=== PATIENT | male | born 1960 | race Caucasian/White ===

== ENCOUNTER → 2021-03-15 09:18 | Outpatient (CLI) | payer OTHER, SELFPAY ==
[2021-03-15 12:17] LABS: COVID19 -Nasal RAPID Negative (Negative)
== END ==
PROVIDERS: Visit Provider Physician Assistant
DX: Z01.812 Encounter for preprocedural laboratory examination (principal); Z20.822 Contact with and (suspected) exposure to COVID-19
CPT/HCPCS: 87635

== ENCOUNTER 2021-03-17 08:02 | Day surgery (SDC) | payer OTHER, SELFPAY ==
[2021-03-10 12:51] VITALS: BMI 41.4
[2021-03-17] VITALS (11 sets, daily range): BP systolic 139–174; BP diastolic 74–97; PULSE 59–70; RESP 12–22; TEMP 35.6–37.1; O2SAT 92–99; BMI 41.4
--- NOTE | 2021-03-17 06:30 | DI.RAD.S_ITS ---
PROCEDURE: XR KNEE RT 1TO2V INDICATIONS: post op total knee TECHNIQUE: 2 view(s) of the knee acquired. [facility] [place] 4+ VIEWS RIGHT, 01/15/2021, 10:26. FINDINGS: Bones: Patient is status post knee joint arthroplasty. Hardware components are in expected positions. Visualized bony structures are intact. Soft tissues: Overlying postoperative changes are noted. IMPRESSION: Expected immediate postoperative appearance of right TKA. Dictated by: Man Melendrez [facility] Interpreted: Farooq Newman MD on 03/17/2021 at 12:45 Transcribed by: CAROLYN on 03/17/2021 at 12:46 Approved by: Farooq Newman M.D. on 03/17/2021 at 16:55
[2021-03-17] MEDS: ACETAMINOPHEN 325 MG TABLET 975 MG PO (08:33)
[2021-03-17] MEDS: PREGABALIN 75 MG CAPSULE PO (08:35)
[2021-03-17] MEDS: CELECOXIB 200 MG CAPSULE PO (08:35)
[2021-03-17] MEDS: LACTATED RINGERS 1,000 ML 42 ML IV ×2 (08:37→11:54)
--- NOTE | 2021-03-17 09:47 | PM.PREOP ---
Pre-operative Note COVID-19 COVID-19 status: Negative Result date/Date tested (Pos, Neg/Pending): 03/15/21 Interval Note History & Physical reviewed/Exam performed by Physician: Yes Changes to H&P: No
--- NOTE | 2021-03-17 10:11 | PM.OP.1 ---
Operative Date/Time/Diagnoses Date of procedure: 03/17/21 Time of procedure: 12:15 Pre-op diagnosis: Right knee osteoarthritis Post-op diagnosis: same Procedure & Clinicians Procedure: Right total knee replacement Same procedure as scheduled: Yes Indications: The patient has had progressively worsening right knee pain with radiographic changes consistent with arthritis. Non-operative management has failed and the patient has requested total knee replacement. The risks, benefits and alternatives to surgery were discussed with the patient prior to proceeding. Risks discussed included, but were not limited to, failure to relieve pain, stiffness, infection, nerve damage, deep venous thrombosis, pulmonary embolism, stroke, coma, heart attack, permanent paralysis and , as well as the potential need for eventual revision of the prosthetic. Surgeon: Rock Carrasco Afternoon Nanny: Rony Lomas Anesthesia Type: Local Operative Notes Findings: Severe osteoarthritis of the right knee, worst in the lateral compartment. Closure Type: primary Specimen(s): none sent Prosthetic devices, grafts, tissues, transplants, or devices: Implants used in this procedure were manufactured by the [employer] and included the BCS II Journey total knee replacement with a size 6 Oxinium femoral component, a size 6 right non porous tibial base plate, a 9 mm cross-linked polyethylene insert, and a 38 mm oval Roya II patella. Applied: implant(s) Estimated Blood Loss (mL): 25 Blood products transfused: none Tourniquet time (min): 53 Procedure in detail: The patient was seen in the pre-operative area, where the patient identified the right knee as the operative site and this was marked with my initials. The patient received pre-operative antibiotics, and was taken to the operating room and placed on the operative table in the supine position. After satisfactory anesthesia, a corporate legal secretary out was performed. The right leg was encircled with a tourniquet about the proximal thigh, and the leg was prepared from the toes to the tourniquet with ChloroPrep in the usual fashion and draped through sterile drapes. The leg was elevated and exsanguinated with Eschmark bandage and the tourniquet inflated to 250 mmHg pressure. The knee was approached through an approximately 18 cm incision centered over the patella and carried into the knee through a medial parapatellar arthrotomy. The anterior osteophytes and soft tissues were removed. The rotational landmarks of Nottingham's line and the transepicondylar axis were marked on the femur with electrocautery, and intramedullary guide holes for the femur and tibia were created. The distal femoral cut was made in 6 degrees of valgus using the intramedullary guide at the primary cut setting. The proximal tibial cut was then made using the intramedullary guide, taking 7 mm of bone off the less involved medial side. The extension gap was checked and the rotation of the femoral component confirmed with the gap balancing system. The anterior, posterior and chamfer cuts were then made. The posterior osteophytes and soft tissues were then removed. The posterior capsule was injected with part of a mixture of 60 ml 0.25% Marcaine mixed with 20 ml Exparel and 4 mg of morphine for post-operative pain control. The remainder of this mixture was injected into the capsule and subcutaneous tissues during cement curing. The tibia was prepared with the rotation set by an extra medullary guide. Trial tibial and femoral components were then placed and the intercondylar notch cut through the femoral trial. Range of motion was 0-140 degrees, with good stability throughout the range. The patella was then cut to accommodate the patellar prosthetic. There was no need for a lateral release. The trials were then removed, and the femoral hole plugged with a bone plug. The bone was prepared with pulsatile lavage, and dried with a sponge. Cement was applied and the final prosthetics placed. Excess cement was removed during and after cement curing. After confirming there was no extruded cement posteriorly, the final tibial insert was placed. The knee was copiously irrigated and the tourniquet deflated. Hemostasis was obtained. The capsule was closed with interrupted # 2 polyester suture. The subcutaneous layer was closed with 3-0 Vicryl, and the skin with a running 3-0 V-Lock suture and Dermabond. An Aquacel Ag dressing was applied and the patient was taken to recovery having tolerated the procedure well. Post-operative Condition: stable Disposition: PACU Plan for aftercare: The patient will be maintained on a standard total knee replacement protocol with weight bearing as tolerated. The patient will receive aspirin and sequential compression devices for DVT prophylaxis. The patient will be discharged home when safe for the home environment.
[2021-03-17] MEDS: CEFAZOLIN 1 GM VIAL 2 GM IV (10:40)
[2021-03-17] MEDS: TRANEXAMIC ACID 1,000 MG VIAL 1000 MG INJ ×2 (10:42→11:46)
--- NOTE | 2021-03-17 10:57 | SUR.OPER ---
Supine on padded OR bed. Pillow under head, arms secured on padded armboards <90 degree abduction. Safety belt across torso. Non-operative leg secured with tape over blanket over lower leg. Operative leg secured in DeMayo/Tesfaye/Nathe positioner. Foam padded brace at thigh of operative leg.
[2021-03-17] MEDS: BUPIVACAINE 0.25% W/ EPI 30 ML VIAL 60 ML INJ (11:05)
[2021-03-17] MEDS: MORPHINE 4 MG/ML INJ INJ (11:06)
[2021-03-17] MEDS: BUPIVACAINE LIPOSOME 266 MG/20 ML VIAL INJ (11:06)
[2021-03-17] MEDS: ONDANSETRON 4 MG/2 ML INJ IV (13:04)
[2021-03-17] MEDS: LACTATED RINGERS 1,000 ML 100 ML IV (13:28)
--- NOTE | 2021-03-17 13:40 | SUR.PHASEI ---
just after report to Jessica Esquivel and prior to transporting to room 216, pt reported not feeling well. Emesis of 100cc clear fluid was recorded. Gave 4mg of zofran and held for additional 15 minutes. Update given at bedside to RN.
--- NOTE | 2021-03-17 14:13 | PC.NURSE ---
Addendum entered by Jessica Esquivel R.N. 03/17/21 14:36: Patient feeling nauseated, requested some saltines. No emesis. Original Note: Patient to room at 1330 alert, oriented denies pain, reports just some heaviness to right knee. Patient able to wiggle toes, unable to left leg at this time. PPP, cap refill<2 sec. Patient had 100cc emesis in PACU right before transferring upstairs. Patient reports last void was at 0800 this am. Patient oriented to room and call light.
[2021-03-17] MEDS: OXYCODONE IR 10 MG TABLET PO (15:31)
[2021-03-17] MEDS: IBUPROFEN 400 MG TABLET PO (16:15)
[2021-03-17] MEDS: AMLODIPINE 5 MG TABLET PO (16:15)
--- NOTE | 2021-03-17 16:15 | PT.IIE ---
Current Diagnoses Unilateral primary osteoarthritis, right knee (03/17/21) Surgery Performed Operation Date: 03/17/21 10:30 Actual Procedures p Total Knee Arthroplasty(Right) - Rock Carrasco MD Medical History (Last Updated 03/10/21 @ 13:08 by Adelaide Jay RN) HLD (hyperlipidemia) HTN (hypertension) KD on CPAP Osteoarthritis Umbilical hernia Physical Therapy Inpatient Evaluation/Re-Eval M1 PT/OT-IP Prior Functional Status Start: 03/17/21 15:34 Freq: NEEDED Status: Active Protocol: Document 03/17/21 16:15 AW (Rec: 03/17/21 16:49 AW [id number]) Medical Review Prior Functional Status Medical History Reviewed Yes Communication WNL. Pt is an effective verbal communicator. Mobility and Gait Independent without assistive device. Pt states his knee hurts after a long walk but he is able to walk as much as he wants. Activities of Daily Living and IADL's Independent. 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 Social History Household Members spouse Living Arrangements House Number of Floors (Floors) Two Floors Number of Stairs To Enter/Railing? Level entrance. Pt stays on the supply coordinator. 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 He lives with his who will be available and able to assist at discharge. M2 PT-IP Current Condition Start: 03/17/21 15:34 Freq: NEEDED Status: Active Protocol: Document 03/17/21 16:15 AW (Rec: 03/17/21 16:49 AW [id number]) Physical Therapy Current Condition Current Condition Evaluation Date 03/17/21 Treatment Diagnosis R TKA; difficulty in walking Onset Date 03/17/21 Weight Bearing Status Weight Bearing Status Weight Bear as Tolerated M3 PT-IP Subjective Start: 03/17/21 15:34 Freq: NEEDED Status: Active Protocol: Document 03/17/21 16:15 AW (Rec: 03/17/21 16:49 AW [id number]) Subjective Physical Therapy Visit Type Type Initial Evaluation Visit Start Time 15:48 Visit Stop Time 16:15 Total Visit Minutes 27 Notes Pt's was present throughout. Ortho MD interrupted briefly to discuss potential discharge. Number of CERAMIC WORKER Visits 0 Physical Therapy Visit Comments Patient Comments Pt is willing to participate with PT Patient Goals Return home with spouse support. Return to work. Therapy Pain Assessment Pain When Pain Assessed During Mobility Pain Present Pain Present Pain Reported Location right thigh Intensity 6 Scale Used Numeric (0 - 10) Description Sharp Pain Behaviors Wincing Pain Management Techniques Distraction,Timing of Activity with Medications M4 PT-IP Mobility and Gait Start: 03/17/21 15:34 Freq: NEEDED Status: Active Protocol: Document 03/17/21 16:15 AW (Rec: 03/17/21 16:49 AW [id number]) PT-Bed Mobility Assessment Supine to Sit Supine to Sit Standby Assistance Scooting Scooting to Edge of Bed Standby Assistance PT-Transfer Assessment Sit to and From Stand Sit to and from Stand Standby Assistance,Use of Upper Extremities Equipment Transfer Assistive Device Gait Belt,Front Wheeled Walker Orthotic/Prosthetic Devices or Brace: No Transfers Transfer Destination Chair Transfer Technique ambulated with FWW Transfer Ability Level of Assist Standby Assistance Comments Mobility Comments Pt was lying in bed as PT arrived. BP was 173/89 HR 67 SpO2 98% RA. I haven't had my BP meds today. He sat up on EOB from flat bed SBA. Sitting BP was 167/82 HR 75. Pt stood from the bed with FWW SBA. He ambulated to the toilet, pushing the walker over the toilet and standing with good balance to void. He turned and ambulated to the chair with FWW SBA. He stood from the chair SBA and ambulated around the room a total of 40 feet with FWW SBA before returning to the chair. Pt was left with call sykes and tray table in reach. Gait Assessment Gait Gait Assistance Required: Standby Assistance Distance (Feet) 40 Able to Maintain Weight Bearing Status Yes During Gait Assistive Devices Assistive Device Gait Belt,Front Wheeled Walker Orthotic/Prosthetic Devices or Brace: Yes Gait Deviations General Gait Pattern Antalgic,Decreased Stride Length,Decreased Feet Clearance,Step-to Gait Factors Limiting Gait Function Factors Limiting Gait Function Decreased Strength,Limited Range of Motion,Pain,Poor Balance Comments Gait Comments Pt ambulated safely with FWW. No LOB. Stair Climbing Assessment Comments Stair Climbing Comments No stairs at home. PT-Balance Assessment Sitting Balance and Reactions Static Sitting Balance Ability Normal Dynamic Sitting Balance Ability Normal Standing Balance and Reactions Static Standing Balance Ability Good Dynamic Standing Balance Ability Good Device Used FWW M5 PT-IP Objective Assessments Start: 03/17/21 15:34 Freq: NEEDED Status: Active Protocol: Document 03/17/21 16:15 AW (Rec: 03/17/21 16:49 AW [id number]) Orientation Orientation/Cognition Level of Alertness Alert Orientation Name,Day of Week,Place, Situation Language Function Ability No Deficits Noted Safety Awareness Understands Safety Issues Memory Description No Deficits Noted Gross Range of Motion Lower Extremity ROM Assessment Right Impaired Strength Lower Extremity Strength Assessment Right Impaired Hip 3+/5 Knee 3-/5 Ankle 4/5 Comments Strength Comments LLE grossly 4+/5 Sensation Assessment Sensation Gross Sensation WNL M6 PT-IP Treatment Start: 03/17/21 15:34 Freq: NEEDED Status: Active Protocol: Document 03/17/21 16:15 AW (Rec: 03/17/21 16:49 AW [id number]) Physical Therapy Treatment Exercises Exercises Ankle Pumps,Quad Sets,Heel Slides,Passive Knee Extension Hang Education Education Provided Precautions,Weight Bearing Status,Post-Op Packet,Safety Other Treatments Other Treatment Performed Educated pt on PT plan of care , weightbearing status, and safe use of FWW. M7 PT-IP Assessment and Plan Start: 03/17/21 15:34 Freq: NEEDED Status: Active Protocol: Document 03/17/21 16:15 AW (Rec: 03/17/21 16:49 AW [id number]) PT Summary Assessment and Plan Potential Rehabilitation Potential Good Status of Condition at Evaluation Evolving Summary Impairments Pain,ROM,Strength,Balance,Bed Mobility,Transfers,Gait Assessment Summary Royce is a 60 yo man seen for PT evaluation on POD0 following R TKA. He is an independent community ambulator at baseline and is otherwise fully independent. On assessment, pt required no more than SBA with all mobilities using FWW. He has no stairs at home and will have his to provide assist. Pt may go home when medically stable. Outpatient PT is already scheduled. Goals Bed Mobility Goal Independent Transfer Goal Independent,Front Wheeled Walker Gait Goal Independent,Front Wheel Walker Gait Distance 200 Days to Meet Goals 2 Frequency of Treatment Frequency Of Treatment Twice a Day Treatment Plan Physical Therapy Treatment Plan Bed Mobility Training,Transfer Training,Gait Training, Therapeutic Exercise,Balance Retraining,Post Op Education, Discharge Planning,Hot or Cold Pack Precautions Other Precautions WBAT RLE Recommendations To Nursing Amount of Assist Needed Standby Assistance,1 Person Assist Discharge Recommendations PT Discharge Recommendations Home with Assistance, Outpatient PT Transportation Needs at Discharge Private Vehicle
--- NOTE | 2021-03-17 16:59 | PC.NURSE ---
patient with discharge orders, education and instructions gone over with patient and spouse. Patient taken down to transportation via wheelchair.
== END 2021-03-17 16:45 | disposition home or self-care (01) ==
LOC: OR 12:19 → AC 12:20
PROVIDERS: Referring Provider Orthopaedic Surgery; Visit Provider Orthopaedic Surgery
PROC: 0SRC0JZ Replacement of Right Knee Joint with Synthetic Substitute, Open Approach (ICD-10-PCS; CPT 27447; principal; 2021-03-17 10:30)
DX: M17.11 Unilateral primary osteoarthritis, right knee (principal); I10 Essential (primary) hypertension; E78.00 Pure hypercholesterolemia, unspecified; G47.33 Obstructive sleep apnea (adult) (pediatric)
CPT/HCPCS: 27447; 73560; 97161; 97535; C1776; C9290; J0690; J2250; J2270; J2405; J2704; J3010

== ENCOUNTER 2022-05-01 08:53 | Inpatient (IN) | payer OTHER, SELFPAY ==
[2021-03-17 13:30] VITALS: BMI 41.4
[2022-05-01] VITALS (12 sets, daily range): BP systolic 114–156; BP diastolic 65–96; PULSE 80–99; RESP 14–28; TEMP 36.8–37.9; O2SAT 93–98; BMI 40.7; BMI 41.3
--- NOTE | 2022-05-01 09:07 | DI.RAD.S_ITS ---
PROCEDURE: XR KNEE RT 3V INDICATIONS: swelling and pain TECHNIQUE: 3 views of the knee were acquired. COMPARISON: [facility], , XR KNEE RT 1TO2V, 03/17/2021, 12:30. FINDINGS: Bones: Stable postsurgical changes of prior right total knee arthroplasty without evidence for hardware complication. Postsurgical alignment is stable. No acute fracture seen. Soft tissues: Large joint effusion. No suspicious soft tissue calcifications. IMPRESSION: Right knee without acute fracture or dislocation. Stable postsurgical changes of right total knee arthroplasty. Large joint effusion. Dictated by: Farooq Newman M.D. on 05/01/2022 at 9:32 Approved by: Farooq Newman M.D. on 05/01/2022 at 9:33
[2022-05-01 09:31] LABS: Add Manual Diff / Slide Review NO; Basophils Absolute Auto 0 /uL (0-100); Basophils Percent Auto 0.2 % (0-2); Eosinophils Absolute Auto 0 /uL (0-450); Hematocrit 45.4 % (41-53); Hemoglobin 15.1 g/dL (13.5-17.5); Lymphocytes Absolute Auto 700 /uL (1100-4500); Lymphocytes Percent Auto 3.4 % (25-40); Mean Corpuscular HGB Conc 33.3 % (30-36); Mean Corpuscular Hemoglobin 29.9 PG (26-34); Mean Corpuscular Volume 89.6 fL (80-100); Monocytes Absolute Auto 2000 /uL (0-900); Neutrophils Absolute Auto 17400 /uL (1500-7000); Neutrophils Percent Auto 86.4 % (50-75); Platelet Count 189 X10^3/uL (150-400); Red Blood Cell Count 5.06 X10^6/uL (4.5-5.9); Red Cell Distribution Width 14.2 % (11.6-14.8); White Blood Cell Count 20.2 X10^3/uL (4.5-11.0)
[2022-05-01 09:40] LABS: Alanine Aminotransferase 30 IU/L (<50); Albumin 4.1 g/dL (3.5-5.0); Albumin Globulin Ratio 1.1 (1.0-2.8); Alkaline Phosphatase 77 U/L (38-126); Aspartate Aminotransferase 40 IU/L (17-59); BUN Creatinine Ratio 10.7 (6-22); Bilirubin Total 1.3 mg/dL (0.2-1.3); Blood Urea Nitrogen 16 mg/dL (9-20); Calcium 8.5 mg/dL (8.4-10.2); Carbon Dioxide 23 mmol/L (22-32); Chloride 96 mmol/L (98-107); Estimated Glomerular Filt Rate 54 mL/min (>60); Globulin 3.8 g/dL (1.7-4.1); Glucose 144 mg/dL (70-100); HEMOLYSIS < 15 (0-50); Potassium 3.4 mmol/L (3.4-5.1); Sodium 132 mmol/L (137-145); Total Protein 7.9 g/dL (6.3-8.2)
[2022-05-01 09:59] LABS: Lactate (Lactic Acid) 3.5 mmol/L (0.7-2.1)
--- NOTE | 2022-05-01 09:59 | ED.EXTPRO ---
HPI - Extremity Problem General Chief complaint: Extremity Problem,Nontraumatic Stated complaint: fever, unable to put weight on rt knee Time Seen by Provider: 05/01/22 09:41 Source: patient Mode of arrival: Wheelchair History of Present Illness HPI Narrative: Patient here with family. Complains of right knee pain and swelling. Unable to bear weight. Patient started with a fever 2 days ago. This morning temperature 100.0?. No fever here. Patient had total right knee replacement by Orthopedic Dr. Carrasco last year. Has been doing well until this week. No known injury. No sick contacts. No skin injury. No repetitive stress on his knee. Related Data Home Medications Medication Instructions Recorded Confirmed amlodipine 5 mg tablet 5 mg PO QPM 03/10/21 05/01/22 atorvastatin 40 mg tablet 40 mg PO DAILY 03/10/21 05/01/22 losartan 100 mg tablet 100 mg PO DAILY 03/10/21 05/01/22 Previous Rx's Medication Instructions Recorded hydroxyzine pamoate 25 mg capsule 25 mg PO Q6HR PRN Nausea #30 caps 03/17/21 Allergies Allergy/AdvReac Type Severity Reaction Status Date / Time ampicillin Allergy Severe Rash, Verified 05/01/22 17:27 diarrhea Review of Systems Review of Systems Narrative: GENERAL: Denies chills, fatigue, malaise, positive for fever, sweats. HEENT: Denies sinus pain, ear pain, sore throat RESPIRATORY: Denies dyspnea, cough CARDIOVASCULAR: Denies chest pain, palpitations GASTROINTESTINAL: Denies nausea, vomiting, abdominal pain : Denies dysuria, frequency, hematuria MUSCULOSKELETAL: Positive for muscle or bony pain SKIN: Denies rash, skin lesions NEUROLOGIC: Denies weakness, numbness ROS Unobtainable: All systems reviewed & are unremarkable except as noted in HPI and below Patient History Medical History HLD (hyperlipidemia) HTN (hypertension) KD on CPAP Osteoarthritis PONV (postoperative nausea and vomiting) Umbilical hernia Surgical History Hx of arthroscopy of right knee (~2001) Hx of knee surgery Hx of tonsillectomy [place] teeth removed Social History household members: spouse Smoking Status: Former smoker alcohol intake: current Smoking Status: Former smoker alcohol intake frequency: a few times a month Substance Use Type: does not use Exam Narrative Exam Narrative: GENERAL: in no distress, not toxic not dyspneic HEAD: Normocephalic. EYES: Pupils equal round No scleral icterus. ENT: Mucous membranes moist. NECK: Trachea midline. CARDIOVASCULAR: Regular rate and rhythm without murmurs RESPIRATORY: Clear to auscultation. Breath sounds equal bilaterally. No wheezes, rales, or rhonchi. EXTREMITIES: Patient in shorts. Shoes and socks off. Nontender hip and ankle and foot. Strong pedal pulse foot warm soft and pink. There is large edema effusion to the anterior knee. No overlying induration erythema. Very limited flexion to the knee due to pain. Able to keep fully extended. NEURO: AOx4. SKIN: Warm and dry PSYCH: Not anxious, is cooperative Initial Vital Signs Initial Vital Signs: Vital Signs Temperature 98.2 F 05/01/22 09:03 Pulse Rate 84 05/01/22 09:03 Respiratory Rate 16 05/01/22 09:03 Blood Pressure 139/77 05/01/22 09:03 Pulse Oximetry 97 05/01/22 09:03 Oxygen Delivery Method 05/01/22 09:03 Course Course Course Narrative: I did try aspirating the right knee. Use local infiltration of 1% lidocaine with epinephrine laterally and medially. No success with 18 gauge needle to aspirate synovial fluid. Decision to Admit Date: 05/01/22 Decision to Admit time: 10:34 Orders Ordered: ED Orders 05/01/22 11:37 Cell Count w Diff Body Fluid Stat 05/01/22 11:39 Body Fluid Culture Stat Gram Stain Stat Hydromorphone HCl (Hydromorphone 1 Mg Inj) 1 mg IV Q1H PRN PRN Reason: Pain, Moderate (4-6) Last Admin: 05/01/22 13:36 Dose: 1 mg Documented By: NAYE Hydromorphone HCl (Hydromorphone 2 Mg Inj) 0 mg IV Q5M PRN PRN Reason: Pain, Severe (7-10) Hydromorphone HCl (Hydromorphone 2 Mg Inj) 0 mg IV Q5M PRN PRN Reason: Pain, Moderate (4-6) Lactated Ringer's (Lactated Ringers) 1,000 mls @ 125 mls/hr IV CONT WIL Last Admin: 05/01/22 19:22 Dose: 125 mls/hr Documented By: Infusion: 05/01/22 19:22 Dose: 125 mls/hr Documented By: Admin: 05/01/22 13:36 Dose: 125 mls/hr Documented By: NAYE Metoclopramide HCl (Metoclopramide 10 Mg/2 Ml Inj) 10 mg IV NOW PRN PRN Reason: Nausea And Vomiting Ondansetron HCl (Ondansetron 4 Mg/2 Ml Inj) 4 mg IV NOW PRN PRN Reason: Nausea And Vomiting Oxycodone HCl (Oxycodone Ir 5 Mg Tablet) 5 mg PO PACUNOW PRN PRN Reason: Mild or moderate pain Discontinued Medications Acetaminophen (Acetaminophen 325 Mg Tablet) 975 mg PO PACUNOW ONE Stop: 05/01/22 19:13 Hydromorphone HCl (Hydromorphone 1 Mg Inj) 1 mg IV NOW ONE Stop: 05/01/22 11:18 Last Admin: 05/01/22 11:24 Dose: 1 mg Documented By: OTTO Sodium Chloride (Normal Saline 0.9%) 1,000 mls @ 1,000 mls/hr IV BOLUS ONE Stop: 05/01/22 11:10 Last Infusion: 05/01/22 11:39 Dose: 0 mls/hr Documented By: Admin: 05/01/22 10:29 Dose: 1,000 mls/hr Documented By: GRACIE Ceftriaxone Sodium 2,000 mg/ (Sodium Chloride) 100 mls @ 200 mls/hr IV NOW ONE Stop: 05/01/22 11:39 Last Infusion: 05/01/22 13:08 Dose: 0 mls/hr Documented By: Admin: 05/01/22 11:46 Dose: 200 mls/hr Documented By: OTTO Vancomycin HCl/Dextrose (Vancomycin) 2,000 mg in 400 mls @ 200 mls/hr IV NOW ONE Stop: 05/01/22 14:04 Last Infusion: 05/01/22 18:31 Dose: 0 mls/hr Documented By: Admin: 05/01/22 13:36 Dose: 200 mls/hr Documented By: NAYE Lidocaine HCl (Lidocaine 1% (Pf)) 2 ml INJ NOW ONE Stop: 05/01/22 11:05 Last Admin: 05/01/22 11:24 Dose: 2 ml Documented By: OTTO Lidocaine/Epinephrine (Lidocaine 1% W/Epi) 4 ml INJ INTRA-OP ONE Stop: 05/01/22 10:03 Last Admin: 05/01/22 10:30 Dose: Not Given Documented By: OTTO Ondansetron HCl (Ondansetron 4 Mg/2 Ml Inj) 4 mg IV NOW ONE Stop: 05/01/22 11:18 Last Admin: 05/01/22 11:24 Dose: 4 mg Documented By: OTTO Vancomycin HCl (Vancomycin Per Pharmacy) 1 request MISC NOW ONE Stop: 05/01/22 11:39 Last Admin: 05/01/22 13:37 Dose: Not Given Documented By: NAYE Reevaluation(s) Reevaluation #1: Orthopedics physician legal assistant at bedside to aspirate the knee. Time: 11:19 Consultations Consultation #1: Spoke with Dr. Torres, orthopedics. Keep patient NPO. She will board him for the OR today for washout of the knee. She will try to get staff member to the ER to aspirate the knee. Hold on antibiotics at this time. Time: 10:34 Vital Signs Vital signs: Vital Signs - 8 hr 05/01/22 09:03 Temperature 98.2 F Pulse Rate 84 Respiratory Rate 16 Blood Pressure 139/77 Pulse Oximetry 97 Oxygen Delivery Method Room Air MDM - Extremity (Nontraumatic) Differential Diagnosis Differential diagnosis: Likely cellulitis and other (Septic joint septic knee septic arthritis joint effusion/osteoarthritis) Lab Data Result diagrams: 05/01/22 09:00 05/01/22 09:00 Labs: Lab Results 05/01/22 05/01/22 05/01/22 Range/Units 09:00 09:00 09:20 WBC 20.2 H (4.5-11.0) X10^3/uL RBC 5.06 (4.5-5.9) X10^6/uL Hgb 15.1 (13.5-17.5) g/dL Hct 45.4 (41-53) % MCV 89.6 (80-100) fL MCH 29.9 (26-34) PG MCHC 33.3 (30-36) % RDW 14.2 (11.6-14.8) % Plt Count 189 (150-400) X10^3/uL Neut % (Auto) 86.4 H (50-75) % Lymph % (Auto) 3.4 L (25-40) % [place] % (Auto) 10.0 (3-14) % Eos % (Auto) 0.0 L (2-4) % Baso % (Auto) 0.2 (0-2) % Neut # (Auto) 18666 H (4257-5467) /uL Lymph # (Auto) 700 L (1388-4327) /uL [place] # (Auto) 2000 H (0-900) /uL Eos # (Auto) 0 (0-450) /uL Baso # (Auto) 0 (0-100) /uL ESR 20 H (0-15) MM/HR Sodium 132 L (137-145) mmol/L Potassium 3.4 (3.4-5.1) mmol/L Chloride 96 L (98-107) mmol/L Carbon Dioxide 23 (22-32) mmol/L BUN 16 (9-20) mg/dL Creatinine 1.49 H (0.66-1.25) mg/dL Estimated GFR 54 L (>60) mL/min BUN/Creatinine Ratio 10.7 (6-22) Glucose 144 H (70-100) mg/dL Lactate (0.7-2.1) mmol/L Calcium 8.5 (8.4-10.2) mg/dL Total Bilirubin 1.3 (0.2-1.3) mg/dL AST 40 (17-59) IU/L ALT 30 (<50) IU/L Alkaline Phosphatase 77 (38-126) U/L C-Reactive Protein (<1.0) mg/dL Total Protein 7.9 (6.3-8.2) g/dL Albumin 4.1 (3.5-5.0) g/dL Globulin 3.8 (1.7-4.1) g/dL Albumin/Globulin Ratio 1.1 (1.0-2.8) Procalcitonin (<0.5) ng/mL SARS-CoV-2 (PCR) (Negative) 05/01/22 05/01/22 05/01/22 Range/Units 09:20 09:20 09:22 WBC (4.5-11.0) X10^3/uL RBC (4.5-5.9) X10^6/uL Hgb (13.5-17.5) g/dL Hct (41-53) % MCV (80-100) fL MCH (26-34) PG MCHC (30-36) % RDW (11.6-14.8) % Plt Count (150-400) X10^3/uL Neut % (Auto) (50-75) % Lymph % (Auto) (25-40) % [place] % (Auto) (3-14) % Eos % (Auto) (2-4) % Baso % (Auto) (0-2) % Neut # (Auto) (0644-3063) /uL Lymph # (Auto) (9048-4745) /uL [place] # (Auto) (0-900) /uL Eos # (Auto) (0-450) /uL Baso # (Auto) (0-100) /uL ESR (0-15) MM/HR Sodium (137-145) mmol/L Potassium (3.4-5.1) mmol/L Chloride (98-107) mmol/L Carbon Dioxide (22-32) mmol/L BUN (9-20) mg/dL Creatinine (0.66-1.25) mg/dL Estimated GFR (>60) mL/min BUN/Creatinine Ratio (6-22) Glucose (70-100) mg/dL Lactate 3.5 H (0.7-2.1) mmol/L Calcium (8.4-10.2) mg/dL Total Bilirubin (0.2-1.3) mg/dL AST (17-59) IU/L ALT (<50) IU/L Alkaline Phosphatase (38-126) U/L C-Reactive Protein 20.5 H (<1.0) mg/dL Total Protein (6.3-8.2) g/dL Albumin (3.5-5.0) g/dL Globulin (1.7-4.1) g/dL Albumin/Globulin Ratio (1.0-2.8) Procalcitonin 2.21 H (<0.5) ng/mL SARS-CoV-2 (PCR) Negative (Negative) Imaging Data Extremity x-ray #1: Radiologist's Impression: [address] [address] XRay Report Signed Patient: Jarocho Melo MR#: [id number] : 1960 Acct:[id number] Age/Sex: 61 / M Date of Service: 05/01/22 Loc: ED Accession Number: [id number] ?? Procedure: XR knee RT 3V Ordering Provider: Sam Blackburn MD PROCEDURE:? XR KNEE RT 3V ? INDICATIONS:? swelling and pain ? TECHNIQUE:? 3 views of the knee were acquired.? ? COMPARISON:? [facility], , XR KNEE RT 1TO2V, 03/17/2021, 12:30. ? FINDINGS:? ? Bones:? Stable postsurgical changes of prior right total knee arthroplasty without evidence for hardware complication.? Postsurgical alignment is stable.? No acute fracture seen. ? Soft tissues:? Large joint effusion.? No suspicious soft tissue calcifications.? ? ? IMPRESSION:? Right knee without acute fracture or dislocation.? Stable postsurgical changes of right total knee arthroplasty.? Large joint effusion. ? ? Dictated by: Farooq Newman M.D. on 05/01/2022 at 9:32 ? ? Approved by: Farooq Newman M.D. on 05/01/2022 at 9:33 ? MDM Narrative Medical decision making narrative: Appropriate for admission for knee washout by Orthopedics. I did speak with Dr. Torres and she will admit patient for surgery today. Discharge Plan Departure Patient Disposition: Admitted as Observation Clinical Impression: Septic joint of right knee joint Admit Date/Time: 05/01/22 11:24 Admit Provider: Sheri Torres
[2022-05-01 10:18] LABS: Procalcitonin 2.21 ng/mL (<0.5)
[2022-05-01 10:22] LABS: C-Reactive Protein Quant 20.5 mg/dL (<1.0)
[2022-05-01 10:29] LABS: Erythrocyte Sedimentation Rate 20 MM/HR (0-15)
[2022-05-01] MEDS: SODIUM CHLORIDE 0.9% 1,000 ML 1000 ML IV (10:29)
[2022-05-01 10:30] LABS: COVID19 -Nasal RAPID Negative (Negative)
[2022-05-01] MEDS: HYDROMORPHONE 1 MG INJ IV ×2 (11:24→13:36)
[2022-05-01] MEDS: LIDOCAINE 1% (PF) 2 ML INJ (11:24)
[2022-05-01] MEDS: ONDANSETRON 4 MG/2 ML INJ IV (11:24)
--- NOTE | 2022-05-01 11:45 | P.CONS_ITS ---
History of Present Illness Consult details Date Patient Seen: 05/01/22 Time Patient Seen: 11:47 Chief complaint: fever, unable to put weight on rt knee Reason for consult: septic joint R TKA Narrative: Patient presents to the ER today with a fever of 101.2 at home, 2 days of chills and night sweats and general malaise. He underwent a right total knee arthroplasty with Dr. Carrasco in February of 2021. Generally his knee has been feeling very well. He denies any recent illnesses or dental work, no precipitating factors. He is not diabetic. He developed right knee pain over the last 24 hours. Now he is having difficulty with weight-bearing and flexion. Meds Home Medications and Allergies Home Medications Medication Instructions Recorded Confirmed Type amlodipine 5 mg tablet 5 mg PO QPM 03/10/21 03/17/21 History atorvastatin 40 mg tablet 40 mg PO DAILY 03/10/21 03/17/21 History losartan 100 mg tablet 100 mg PO DAILY 03/10/21 03/17/21 History hydroxyzine pamoate 25 mg capsule 25 mg PO Q6HR PRN Nausea #30 caps 03/17/21 Rx oxycodone 5 mg tablet 5 mg PO Q4H PRN Pain, Moderate 03/17/21 Rx (4-6) #40 tabs Allergies Allergy/AdvReac Type Severity Reaction Status Date / Time ampicillin Allergy Severe Rash, Verified 03/17/21 08:47 diarrhea Review of Systems Constitutional Constitutional: Reports body ache(s), Reports chills, Reports fever(s), Reports malaise and Reports night sweats Musculoskeletal Musculoskeletal: Reports as per HPI Exam Vital Signs (past 8 hours): - 05/01/22 09:03 05/01/22 11:26 Temperature 98.2 F Pulse Rate 84 80 Respiratory Rate 16 18 Blood Pressure 139/77 142/87 H Pulse Oximetry 97 97 Oxygen Delivery Method Room Air Room Air Oxygen Delivery Method Room Air Narrative Exam Narrative: Pleasant 61-year-old male, resting comfortably in bed, no acute distress, not ill appearing. He has family at bedside. Right knee has a 2+ effusion and and there is moderate warmth. No surrounding erythema or induration. Passive range of motion is significantly limited due to pain, approximately 30-60 degrees. Calves are soft and nonTTP. He is distally neurovascularly intact. Objective Labs Result Diagrams: 05/01/22 09:00 05/01/22 09:00 Labs: Laboratory Results - last 24 hr 05/01/22 05/01/22 05/01/22 09:00 09:00 09:20 WBC 20.2 H RBC 5.06 Hgb 15.1 Hct 45.4 MCV 89.6 MCH 29.9 MCHC 33.3 RDW 14.2 Plt Count 189 Neut % (Auto) 86.4 H Lymph % (Auto) 3.4 L [place] % (Auto) 10.0 Eos % (Auto) 0.0 L Baso % (Auto) 0.2 Neut # (Auto) 14319 H Lymph # (Auto) 700 L [place] # (Auto) 2000 H Eos # (Auto) 0 Baso # (Auto) 0 ESR 20 H Sodium 132 L Potassium 3.4 Chloride 96 L Carbon Dioxide 23 BUN 16 Creatinine 1.49 H Estimated GFR 54 L BUN/Creatinine Ratio 10.7 Glucose 144 H Lactate Calcium 8.5 Total Bilirubin 1.3 AST 40 ALT 30 Alkaline Phosphatase 77 C-Reactive Protein Total Protein 7.9 Albumin 4.1 Globulin 3.8 Albumin/Globulin Ratio 1.1 Procalcitonin SARS-CoV-2 (PCR) 05/01/22 05/01/22 05/01/22 09:20 09:20 09:22 WBC RBC Hgb Hct MCV MCH MCHC RDW Plt Count Neut % (Auto) Lymph % (Auto) [place] % (Auto) Eos % (Auto) Baso % (Auto) Neut # (Auto) Lymph # (Auto) [place] # (Auto) Eos # (Auto) Baso # (Auto) ESR Sodium Potassium Chloride Carbon Dioxide BUN Creatinine Estimated GFR BUN/Creatinine Ratio Glucose Lactate 3.5 H Calcium Total Bilirubin AST ALT Alkaline Phosphatase C-Reactive Protein 20.5 H Total Protein Albumin Globulin Albumin/Globulin Ratio Procalcitonin 2.21 H SARS-CoV-2 (PCR) Negative PFSH Medical History HLD (hyperlipidemia) HTN (hypertension) KD on CPAP Osteoarthritis Umbilical hernia Surgical History Hx of arthroscopy of right knee (~2001) Hx of knee surgery Hx of tonsillectomy [place] teeth removed Social History household members: spouse Tobacco & Substance Use Smoking Status: Former smoker alcohol intake: current Assessment & Plan Assessment & Plan narrative: Assessment: Septic total right knee arthroplasty Plan: -the right knee was aspirated today: Right knee was prepped with chlorhexidine. 1 cc of 1% lidocaine was injected via the anterior lateral approach for superficial anesthesia. The skin was then re-prepped with chlorhexidine and an 18 gauge spinal needle was used to aspirate approximately 35 cc of purulent fluid from the right knee. The area was clean and a bandage was applied. The patient tolerated the procedure well. -Dr. Torres is planning to take the patient to the OR today for a poly exchange and I & D of the right knee. -NPO -fluid will be sent for cultures and sensitivity -CBC with diff, sed rate, CRP labs -patient will be admitted to Dr. Torres as he has no other major medical issues Time Spent With Patient Critical Care time: I spent a total of [] minutes of critical care time on this patient's care today; this time is exclusive of procedural time.
[2022-05-01] MEDS: cefTRIAXone 2,000 MG in SODIUM CHLORIDE 0.9% 100 ML 200 MG IV (11:46)
[2022-05-01 11:50] LABS: Reflexed Lactate in 2 Hours Y
[2022-05-01 11:51] LABS: Body Fluid Red Blood Cells 93280 /uL; Body Fluid Tot Nucleated Cells 278280 /uL
[2022-05-01 11:52] LABS: Body Fluid Color BROWN
[2022-05-01 11:53] LABS: Body Fluid Appearance TURBID; Body Fluid Clotted? NO CLOTS PRESENT
[2022-05-01 12:49] LABS: Mononuclear WBC Body Fluid 9 %; Polynuclear WBC Body Fluid 91 %
[2022-05-01 12:58] LABS: Crystals Body Fluid - IN-HOUSE NONE Present
--- NOTE | 2022-05-01 13:26 | PC.NURSE ---
Day shift: Pt on unit from ED at approx 1245. A&Ox4. Reports pain 4/10. Denies any nausea. Dr Torres aware Pt is here. Oriented to room and call light. Rt knee does appear red/swollen. Pain with movement reported. Plan is I&D today per ED RN report. Pt agrees to not get OOB w/o help from staff. Urinal at bedside.
[2022-05-01] MEDS: LACTATED RINGERS 1,000 ML 125 ML IV ×2 (13:36→19:22)
[2022-05-01] MEDS: VANCOMYCIN 2,000 MG/400 ML PIGGYBACK 200 MG IV (13:36)
[2022-05-01 14:10] LABS: Lactate 2HR (Lactic Acid Rflx) 1.1 mmol/L (0.7-2.1)
--- NOTE | 2022-05-01 17:01 | PC.NURSE ---
Day shift: Pt off unit for I&D of rt knee at approx 1700. He did get the full bag of Vanco antibiotic.
--- NOTE | 2022-05-01 17:59 | P.HP_ITS ---
History of Present Illness History of Present Illness Date Patient Seen: 05/01/22 Time Patient Seen: 18:00 Date of Onset of Symptoms: 04/30/22 Chief complaint: fever, unable to put weight on rt knee Narrative: This is a 61-year-old gentleman who has a history of a right total knee arthroplasty by Dr. Carrasco from about a year ago. He notes his knee was functioning extremely well until about 24 hours ago when he noted increased fevers and chills and subsequently developed a right knee in effusion. He notes incapacitating right knee pain. He came to the emergency room for evaluation. And notes severe pain with attempted range of motion. Patient History Medical History HLD (hyperlipidemia) HTN (hypertension) KD on CPAP Osteoarthritis PONV (postoperative nausea and vomiting) Umbilical hernia Surgical History Hx of arthroscopy of right knee (~2001) Hx of knee surgery Hx of tonsillectomy [place] teeth removed Family & Social History Social History: household members spouse Prior Living Arrangements House Safety & Behavioral: Feels Safe in Current Yes Environment Been Physically Hurt or No Threatened By a Person Tobacco & Substance use: Tobacco type cigars Smoking Status Former smoker alcohol intake current alcohol intake frequency a few times a month Substance Use Type does not use Meds Home Medications and Allergies Home Medications Medication Instructions Recorded Confirmed Type amlodipine 5 mg tablet 5 mg PO QPM 03/10/21 05/01/22 History atorvastatin 40 mg tablet 40 mg PO DAILY 03/10/21 05/01/22 History losartan 100 mg tablet 100 mg PO DAILY 03/10/21 05/01/22 History hydroxyzine pamoate 25 mg capsule 25 mg PO Q6HR PRN Nausea #30 caps 03/17/21 05/01/22 Rx Allergies Allergy/AdvReac Type Severity Reaction Status Date / Time ampicillin Allergy Severe Rash, Verified 05/01/22 17:27 diarrhea Review of Systems Review of Systems Narrative: He denies urinary tract infection, he has not had any recent dental problems, he says he has not had any breaks in the skin cough or other problems. He has about a 24 hour history of fevers. He did not have a acute injury. 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 Exam Vital Signs (past 8 hours): - 05/01/22 11:26 05/01/22 12:30 05/01/22 17:15 Temperature 99.3 F 100.3 F H Pulse Rate 80 99 H 92 H Respiratory Rate 18 20 14 Blood Pressure 142/87 H 132/72 152/84 H Pulse Oximetry 97 98 97 Oxygen Delivery Method Room Air Room Air Oxygen Flow Rate 0 Oxygen Delivery Method Room Air Oxygen Flow Rate 0 Narrative Exam Narrative: HEENT is benign he is resting comfortably in bed, his lungs are clear, cor regular rate and rhythm, abdomen is obese but benign, his right leg shows a tense right knee effusion, there is significant restricted range of motion, his incision is healed, there is some edema in the right lower extremity, his calf is soft, was moderate erythema over his right pretibial area without definitive cellulitis, he is neurologically intact distally Objective Labs Result Diagrams: 05/01/22 09:00 05/01/22 09:00 Labs: Laboratory Results - last 24 hr 05/01/22 05/01/22 05/01/22 09:00 09:00 09:20 WBC 20.2 H RBC 5.06 Hgb 15.1 Hct 45.4 MCV 89.6 MCH 29.9 MCHC 33.3 RDW 14.2 Plt Count 189 Neut % (Auto) 86.4 H Lymph % (Auto) 3.4 L [place] % (Auto) 10.0 Eos % (Auto) 0.0 L Baso % (Auto) 0.2 Neut # (Auto) 11424 H Lymph # (Auto) 700 L [place] # (Auto) 2000 H Eos # (Auto) 0 Baso # (Auto) 0 ESR 20 H Sodium 132 L Potassium 3.4 Chloride 96 L Carbon Dioxide 23 BUN 16 Creatinine 1.49 H Estimated GFR 54 L BUN/Creatinine Ratio 10.7 Glucose 144 H Lactate Calcium 8.5 Total Bilirubin 1.3 AST 40 ALT 30 Alkaline Phosphatase 77 C-Reactive Protein Total Protein 7.9 Albumin 4.1 Globulin 3.8 Albumin/Globulin Ratio 1.1 Procalcitonin Fluid Color Fluid Appearance Fluid RBC Fld Tot Nucleated Cell Fluid Polynuclear WBCs Fluid Mononuclear WBCs Fluid Eosinophils Fluid Other Cells Fluid Crystals Body Fluid Clot SARS-CoV-2 (PCR) 05/01/22 05/01/22 05/01/22 09:20 09:20 09:22 WBC RBC Hgb Hct MCV MCH MCHC RDW Plt Count Neut % (Auto) Lymph % (Auto) [place] % (Auto) Eos % (Auto) Baso % (Auto) Neut # (Auto) Lymph # (Auto) [place] # (Auto) Eos # (Auto) Baso # (Auto) ESR Sodium Potassium Chloride Carbon Dioxide BUN Creatinine Estimated GFR BUN/Creatinine Ratio Glucose Lactate 3.5 H Calcium Total Bilirubin AST ALT Alkaline Phosphatase C-Reactive Protein 20.5 H Total Protein Albumin Globulin Albumin/Globulin Ratio Procalcitonin 2.21 H Fluid Color Fluid Appearance Fluid RBC Fld Tot Nucleated Cell Fluid Polynuclear WBCs Fluid Mononuclear WBCs Fluid Eosinophils Fluid Other Cells Fluid Crystals Body Fluid Clot SARS-CoV-2 (PCR) Negative 05/01/22 05/01/22 05/01/22 11:37 11:41 13:50 WBC RBC Hgb Hct MCV MCH MCHC RDW Plt Count Neut % (Auto) Lymph % (Auto) [place] % (Auto) Eos % (Auto) Baso % (Auto) Neut # (Auto) Lymph # (Auto) [place] # (Auto) Eos # (Auto) Baso # (Auto) ESR Sodium Potassium Chloride Carbon Dioxide BUN Creatinine Estimated GFR BUN/Creatinine Ratio Glucose Lactate 1.1 Calcium Total Bilirubin AST ALT Alkaline Phosphatase C-Reactive Protein Total Protein Albumin Globulin Albumin/Globulin Ratio Procalcitonin Fluid Color Brown Fluid Appearance [place]urbid [place] RBC [address] Fld Tot Nucleated Cell [id number] Fluid Polynuclear WBCs 91 Fluid Mononuclear WBCs 9 Fluid Eosinophils Not Reportable Fluid Other Cells Not Reportable Fluid Crystals None present Body Fluid Clot No clots present SARS-CoV-2 (PCR) Assessment & Plan Assessment and plan (1) Septic joint of right knee joint: Status: Acute (2) Infection of total knee replacement: Status: Acute Plan We discussed his options in great detail. His clinical examination, laboratory evaluation is consistent with a periprosthetic joint infection. It appears to be an acute infection. He had an aspiration in the emergency room which was consistent with infection. He does not have a known history of gout. I have recommended urgent right knee irrigation and debridement with 1 stage revision of his knee to remove the polyethylene and do a polyethylene exchange. The procedure alternatives risks benefits and complications were discussed in detail. I did explain to him that he likely needs 6 weeks of IV antibiotics with a PICC line once we get definitive cultures. I also explained in detail that this may not adequately treat his infection and he may require multiple secondary operations to include possible two-stage formal revision arthroplasty. Limits of the procedure options risks benefits and complications were discussed in detail. We do not have an organism yet and I told him I will have a better sense of the antibiotic sensitivity of the organism when we have definitive cultures. I recommended that we proceed with this today in order to minimize additional contamination of the prosthesis. Complications including but not limited to persistent infection, anesthetic complications, bleeding, 8 venous thrombosis, failure to resolve the infection and persistent problems were discussed in detail. Time Spent With Patient Critical Care time: I spent a total of [] minutes of critical care time on this patient's care today; this time is exclusive of procedural time. Quality VTE Deep Vein Thrombosis/Pulmonary Embolism Present on Admission: No
[2022-05-01] MEDS: TRANEXAMIC ACID 1,000 MG VIAL 2000 MG INJ ×2 (18:10→19:12)
--- NOTE | 2022-05-01 18:53 | SUR.OPER ---
Supine on padded OR bed. Pillow under head, arms secured on padded armboards <90 degree abduction. Safety belt across torso. Non-operative leg secured with tape over blanket over lower leg. Operative leg secured in [place] positioner. Foam padded brace at thigh of operative leg.
[2022-05-01] MEDS: VANCOMYCIN 1,000 MG VIAL 1000 MG TOP (19:00)
[2022-05-01] MEDS: BUPIVACAINE 0.25% (PF) VIAL 60 ML INJ (19:38)
[2022-05-01] MEDS: EPINEPHrine 1 MG/ML 0.3 MG INJ (19:39)
[2022-05-01] MEDS: BUPIVACAINE LIPOSOME 266 MG/20 ML VIAL INJ (19:40)
--- NOTE | 2022-05-01 19:43 | PM.OP.1 ---
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 He was aspirated in the emergency room and started on antibiotics. He is brought to the operating room on an urgent basis for irrigation and debridement. He reported that he was having symptoms for less than 24 hours. His presentation was consistent with a probable periprosthetic joint effusion infection. It did appear to have a fairly acute onset. Surgeon: Sheri Torres Public Speaking Coach: Sudha Block Anesthesia Type: General Operative Notes Findings: Significant pus in the knee, no evidence of loosening, no evidence of specific osteolysis, moderate thickening of the synovium, adequate stability Closure Type: primary Specimen(s): other (Multiple cultures and PCR) Prosthetic devices, grafts, tissues, transplants, or devices: Torres and nephew size 5- 6 right 9 mm tibial polyethylene component Applied: drain(s) Estimated Blood Loss (mL): 250 Blood products transfused: none Tourniquet time (min): 34 Procedure in detail: Patient is brought the operating room he underwent the induction of general anesthesia. Time-out was performed. He had been given IV antibiotics in the emergency room prior to the procedure after a culture was obtained. His right lower extremities prepped draped standard sterile fashion. He was given trans the tomás acid. A high thigh tourniquet was applied and elevated. Patient's previous medial parapatellar arthrotomy was used. Skin incision was made dissection was carried out through skin and subcutaneous tissues. Patient's previous non absorbing sutures were carefully removed. Dissection was carried out into the knee joint. There was gross pus. Purulent material was sent to the lab for Gram stain culture and sensitivity. Fairly extensive synovectomy was performed. I sent cultures of the synovium as well as deep cultures from the posterior aspect of his knee. A combination culture was sent for PCR. The components were carefully checked as well as the interface there did not appear to be evidence of loosening. I specifically removed any grossly inflamed or abnormal appearing synovium. Polyethylene was removed. Then a synovectomy of the posterior aspect of the knee as well as in the notch. I then used combination of the pulse lavage as well as a scrub brush to meticulously scrubbed the components as well as the bone component interface. There did not appear to be any loosening of the components. The wound was meticulously and thoroughly irrigated as well as debrided. Gloves were then changed and drapes were placed in order to avoid reintroducing any bacteria into the wound. A new polyethylene was inserted without difficulty. Vancomycin powder was specifically meticulously placed into the knee joint and placed around the components and the interface. The wound was closed with interrupted monofilament. Tourniquet was deflated. There was minimal bleeding. A drain was placed to allow additional drainage. Subcutaneous tissue was closed with interrupted monofilament. Skin was closed with skin mahnaz. A viviana dressing was applied. Complications: none Post-operative Condition: stable Disposition: Acute Care Plan for aftercare: IV antibiotics for likely [address] PICC line. Check culture and sensitivity. Begin therapy weight-bearing as tolerated on the right lower extremity. Drain removal at 48 hours. Home on IV antibiotics when adequately mobilized and safe.
[2022-05-01] MEDS: OXYCODONE IR 5 MG TABLET PO ×3 (20:30→23:45)
[2022-05-01] MEDS: IBUPROFEN 400 MG TABLET PO (21:42)
[2022-05-01] MEDS: DOCUSATE 100 MG CAPSULE PO (21:42)
[2022-05-01] MEDS: LACTATED RINGERS 1,000 ML 100 ML IV (21:43)
[2022-05-01] MEDS: ASPIRIN EC 81 MG TABLET PO (21:46)
--- NOTE | 2022-05-01 22:02 | PC.NURSE ---
0 Patient returned to the floor from PACU. Alert, awake & hungry eating some sandwiches. Did not voiced out of any pain. Will cont. POC & monitor.
[2022-05-01] MEDS: CEFAZOLIN 2 GM/100 ML PREMIX 100 ML IV (23:46)
[2022-05-01] MEDS: ACETAMINOPHEN 325 MG TABLET 650 MG PO (23:46)
[2022-05-02] VITALS (8 sets, daily range): BP systolic 123–139; BP diastolic 65–80; PULSE 65–82; RESP 17–20; TEMP 35.9–37.2; O2SAT 95–97
[2022-05-02] MEDS: IBUPROFEN 400 MG TABLET PO ×4 (03:40→21:15)
[2022-05-02] MEDS: OXYCODONE IR 5 MG TABLET PO (06:07)
[2022-05-02] MEDS: ACETAMINOPHEN 325 MG TABLET 650 MG PO ×3 (06:08→21:17)
[2022-05-02 07:15] LABS: Hematocrit 38.3 % (41-53)
[2022-05-02 07:27] LABS: BUN Creatinine Ratio 13.3 (6-22); Blood Urea Nitrogen 16 mg/dL (9-20); Calcium 8.4 mg/dL (8.4-10.2); Carbon Dioxide 24 mmol/L (22-32); Chloride 99 mmol/L (98-107); Estimated Glomerular Filt Rate > 60 mL/min (>60); Glucose 170 mg/dL (70-100); HEMOLYSIS < 15 (0-50); Potassium 3.8 mmol/L (3.4-5.1); Sodium 134 mmol/L (137-145)
[2022-05-02] MEDS: ATORVASTATIN 20 MG TABLET 40 MG PO (08:54)
[2022-05-02] MEDS: CEFAZOLIN 2 GM/100 ML PREMIX 100 ML IV (08:54)
[2022-05-02] MEDS: LOSARTAN 50 MG TABLET 100 MG PO (08:55)
[2022-05-02] MEDS: DOCUSATE 100 MG CAPSULE PO ×2 (08:55→21:15)
[2022-05-02] MEDS: ASPIRIN EC 81 MG TABLET PO ×2 (09:23→21:15)
--- NOTE | 2022-05-02 09:26 | CM.DANOTE ---
Addendum entered by Barb Duggan R.N. 05/02/22 15:05: Samantha pharmacist from [facility] called back. She indicated that they are unable to access patient's insurance portal on the week-end, and attempted calling insurance, and are closed on the weekend, so it is unclear as to patient's share of cost. She also is inquiring about who is following patient. Will try to have more of this information available and can follow up with ortho tomorrow. Addendum entered by Barb Duggan R.N. 05/02/22 13:18: Called [facility] and spoke to racheal Ribera. Gave her update on patient, insurance information, and that patient is currently on two meds, Ceftriaxone and Vanco. She did ask who is following patient, he does have a primary MD, but at this time, 'is unclear if ortho will follow versus infectious disease MD. Have not yet seen ortho to discuss. Mounika will consult with team to run patient's insurance. Let her know that patient possibly can discharge tomorrow. Mouniak will contact this DC Counselor/Art Therapist today with an update. Original Note: DCP: Case received, EMR reviewed and met with patient. Introduced self and role. Was able to obtain information regarding patient's baseline activity level at home prior to hospitalization. DCP assessment completed with information currently available. Patient is a 61 year old male who admitted yesterday morning to the care of the orthopedist team. PCP: Unknown at this time, will check with patient. Payer: conformed: [employer]. Patient came to the hospital via private vehicle secondary to having increased pain and redness to his right knee. Patient had a right total knee approximately a year ago. The last 24 hours he developed a fever. He came in with post operative infection. He had I&D yesterday. He will need 6 weeks of IV ABO, and PICC line is supposed to be placed. Did go ahead and send referral over to [facility], included face sheet, H&P, operative report, labs. Will follow up with phone call. At this time, patient is on two ABO, and cultures are pending. Met with patient in his room. He is alert and oriented, sitting up in bed. Discussed home infusion, he is ok with this. He resides in [facility] with spouse, Hillary. He is independent, and is employed at [employer]. Let him know that [facility] was sent the referral, and they will have to look into his insurance for auth. P: DCP to continue to follow for needs. At this time, plan is home with [facility]. Will ask patient about who his primary care provider is, will need to see which provider will be following. 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 Yes Advance Directives on File No History Provided By Patient,Medical Record Prior Living Arrangements House Household Members spouse Type of transporation used prior to Drives own vehicle admit Independent with ADL's Yes Is patient alert and oriented? Yes Caregiver for Another No Comment Home with IV infusions. Barriers to Discharge No Comment As long as home IV can be arranged. Discharge Plan Home Transportation Arrangement Spouse Referrals Initiated Other Additional Comment Sent to [facility]. Whiteboard Updated in Patient Room with Yes name and ext. # of Veneer Slicing Machine Operator Review Status In Process Next Review Type Continued Stay Review
[2022-05-02] MEDS: SODIUM CHLORIDE 0.9% FLUSH 10 ML IV ×2 (09:31→21:17)
--- NOTE | 2022-05-02 11:03 | PT.IIE ---
Current Diagnoses Pyogenic arthritis, unspecified (05/01/22) Infection and inflammatory reaction due to other internal joint prosthesis, initial encounter (05/01/22) Presence of unspecified artificial knee joint (05/01/22) Surgery Performed Operation Date: 05/01/22 16:30 Actual Procedures p I&D Total knee, poly exchange(Right) - Sheri Torres MD Surgical History (Last Reviewed 05/01/22 @ 18:02 by Sheri Torres MD) Hx of arthroscopy of right knee (~2001) Hx of knee surgery Hx of tonsillectomy [place] teeth removed Medical History (Last Reviewed 05/01/22 @ 18:02 by Sheri Torres MD) HLD (hyperlipidemia) HTN (hypertension) KD on CPAP Osteoarthritis PONV (postoperative nausea and vomiting) Umbilical hernia Physical Therapy Inpatient Evaluation/Re-Eval M1 PT/OT-IP Prior Functional Status Start: 05/02/22 10:30 Freq: NEEDED Status: Active Protocol: Document 05/02/22 10:30 [facility] (Rec: 05/02/22 10:43 [facility] [id number]) Medical Review Prior Functional Status Medical History Reviewed Yes Communication A and O x 4 Mobility and Gait independent, no device Activities of Daily Living and IADL's independent without difficulty Social History Household Members spouse Living Arrangements House Number of Stairs To Enter/Railing? 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 PT-IP Current Condition Start: 05/02/22 10:30 Freq: NEEDED Status: Active Protocol: Document 05/02/22 10:30 [facility] (Rec: 05/02/22 10:43 [facility] [id number]) Physical Therapy Current Condition Current Condition Evaluation Date 05/02/22 Treatment Diagnosis right TKA revision due to sepsis M3 PT-IP Subjective Start: 05/02/22 10:30 Freq: NEEDED Status: Active Protocol: Document 05/02/22 10:30 [facility] (Rec: 05/02/22 10:43 [facility] [id number]) Subjective Physical Therapy Visit Type Type Initial Evaluation Visit Start Time 09:55 Visit Stop Time 10:30 Total Visit Minutes 35 Number of ASP NET DEVELOPER Visits 0 Physical Therapy Visit Comments Patient Comments Denies need for pain meds prior to PT, pain 2/ Patient Goals discharge home with assist of , 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 Therapy Pain Assessment Pain When Pain Assessed During Mobility Pain Present Pain Present Pain Reported Location right knee Intensity 2 Pain Management Techniques Apply Cold M4 PT-IP Mobility and Gait Start: 05/02/22 10:30 Freq: NEEDED Status: Active Protocol: Document 05/02/22 10:30 [facility] (Rec: 05/02/22 10:43 [facility] [id number]) PT-Bed Mobility Assessment Supine to Sit Supine to Sit Minimal Assistance Sit to Supine Sit to Supine Minimal Assistance PT-Transfer Assessment Sit to and From Stand Sit to and from Stand Standby Assistance Equipment Transfer Assistive Device Front Wheeled Walker Transfer Ability Level of Assist Standby Assistance Gait Assessment Gait Gait Assistance Required: Contact Guard Assist Distance (Feet) 25 Assistive Devices Assistive Device Front Wheeled Walker Factors Limiting Gait Function Factors Limiting Gait Function Limited Range of Motion,Pain Comments Gait Comments cues for heelstrike, relaxed right knee with swing phase of gait PT-Balance Assessment Sitting Balance and Reactions Static Sitting Balance Ability Normal Dynamic Sitting Balance Ability Normal Standing Balance and Reactions Static Standing Balance Ability Good Dynamic Standing Balance Ability Good M5 PT-IP Objective Assessments Start: 05/02/22 10:30 Freq: NEEDED Status: Active Protocol: Document 05/02/22 10:30 [facility] (Rec: 05/02/22 10:43 [facility] [id number]) Orientation Orientation/Cognition Level of Alertness Alert Orientation Name,Place,Situation Language Function Ability No Deficits Noted Safety Awareness Understands Safety Issues Gross Range of Motion Upper Extremity ROM Assessment Within Functional Limits Lower Extremity ROM Impairments left WFL right knee extension: PROM 5- 50 AROM 30-45 Strength Comments Strength Comments left LE WFL right knee extensor lag Sensation Assessment Sensation Gross Sensation Right LE Impaired Sensation Description Paresthesia M6 PT-IP Treatment Start: 05/02/22 10:30 Freq: NEEDED Status: Active Protocol: Document 05/02/22 10:30 [facility] (Rec: 05/02/22 10:43 [facility] [id number]) Physical Therapy Treatment Exercises Exercises Ankle Pumps,Quad Sets,Short Arc Quads Education Education Provided Safety M7 PT-IP Assessment and Plan Start: 05/02/22 10:30 Freq: NEEDED Status: Active Protocol: Document 05/02/22 10:30 [facility] (Rec: 05/02/22 10:43 [facility] [id number]) PT Summary Assessment and Plan Potential Rehabilitation Potential Excellent Status of Condition at Evaluation Stable Summary Impairments ROM,Strength,Gait Assessment Summary Patient is 61 y/o s/p right TKA revision (tibial component replacement) due to sepsis of unknown origin. Patient underwent right TKA 1 year ago . He lives with his in [facility] [place] and has no stairs to enter house. He did well at evaluation today, able to walk in his room with SB to CGA and cues for gait sequencing and safety, anticipate ability to ambulate further this afternoon. He tolerated 10 reps supine TKA ex with mod assist needed for SAQ, SLR not yet attempted. Anticipate him to progress well and be able to discharge home with assist of his . Goals Bed Mobility Goal Independent Transfer Goal Independent Gait Goal Independent Gait Distance 150 Other Goals independent with HEP, right knee AROM 10-90 Days to Meet Goals 2 Frequency of Treatment Frequency Of Treatment Twice a Day Treatment Plan Physical Therapy Treatment Plan Bed Mobility Training,Transfer Training,Gait Training, Therapeutic Exercise,Post Op Education,Discharge Planning, Hot or Cold Pack Weight Bearing Status Weight Bearing Status Weight Bear as Tolerated Recommendations To Nursing Amount of Assist Needed 1 Person Assist Discharge Recommendations PT Discharge Recommendations Home Transportation Needs at Discharge Private Vehicle
--- NOTE | 2022-05-02 12:21 | PT.IPTN ---
Current Diagnoses Pyogenic arthritis, unspecified (05/01/22) Infection and inflammatory reaction due to other internal joint prosthesis, initial encounter (05/01/22) Presence of unspecified artificial knee joint (05/01/22) Surgery Performed Operation Date: 05/01/22 16:30 Actual Procedures p I&D Total knee, poly exchange(Right) - Sheri Torres MD Physical Therapy Treatment Note M2 PT-IP Current Condition Start: 05/02/22 10:30 Freq: NEEDED Status: Active Protocol: Document 05/02/22 10:30 [facility] (Rec: 05/02/22 10:43 [facility] [id number]) Physical Therapy Current Condition Current Condition Evaluation Date 05/02/22 Treatment Diagnosis right TKA revision due to sepsis M3 PT-IP Subjective Start: 05/02/22 10:30 Freq: NEEDED Status: Active Protocol: Document 05/02/22 12:04 [facility] (Rec: 05/02/22 12:57 [facility] [id number]) Subjective Physical Therapy Visit Type Type Treatment Note Visit Start Time 12:04 Visit Stop Time 12:21 Total Visit Minutes 17 Number of CIRCULATOR Visits 1 Physical Therapy Visit Comments Patient Comments Pt agreeable to review exercises and ambulate. 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 M4 PT-IP Mobility and Gait Start: 05/02/22 10:30 Freq: NEEDED Status: Active Protocol: Document 05/02/22 12:04 [facility] (Rec: 05/02/22 12:57 [facility] [id number]) PT-Bed Mobility Assessment Scooting Scooting to Edge of Bed Independent PT-Transfer Assessment Sit to and From Stand Sit to and from Stand Standby Assistance Equipment Transfer Assistive Device Front Wheeled Walker Orthotic/Prosthetic Devices or Brace: No Transfers Transfer Destination Chair Transfer Technique Pt ambulated Transfer Ability Level of Assist Standby Assistance Comments Mobility Comments Pt in chair upon arrival w/ in room. States he has been getting up w/ FWW and took a shower earlier. Gait Assessment Gait Gait Assistance Required: Standby Assistance,1 Person Assist Distance (Feet) 70 Able to Maintain Weight Bearing Status Yes During Gait Assistive Devices Assistive Device Front Wheeled Walker Orthotic/Prosthetic Devices or Brace: No Gait Deviations General Gait Pattern Antalgic,Decreased Stride Length,Decreased Feet Clearance,Flexed Trunk Factors Limiting Gait Function Factors Limiting Gait Function Decreased Strength,Limited Range of Motion,Pain Comments Gait Comments Pt w/ some difficulty fully extending R knee, improved w/ cues. WB heavily through BUE due to knee feeling a little unstable. No LOB. Stair Climbing Assessment Comments Stair Climbing Comments No stairs at home, pt familiar w/ correct sequencing and feels confident to complete whenever he will need to. PT-Balance Assessment Sitting Balance and Reactions Static Sitting Balance Ability Normal Dynamic Sitting Balance Ability Normal Standing Balance and Reactions Static Standing Balance Ability Good Dynamic Standing Balance Ability Good Device Used FWW M5 PT-IP Objective Assessments Start: 05/02/22 10:30 Freq: NEEDED Status: Active Protocol: Document 05/02/22 10:30 [facility] (Rec: 05/02/22 10:43 [facility] [id number]) Orientation Orientation/Cognition Level of Alertness Alert Orientation Name,Place,Situation Language Function Ability No Deficits Noted Safety Awareness Understands Safety Issues Gross Range of Motion Upper Extremity ROM Assessment Within Functional Limits Lower Extremity ROM Impairments left WFL right knee extension: PROM 5- 50 AROM 30-45 Strength Comments Strength Comments left LE WFL right knee extensor lag Sensation Assessment Sensation Gross Sensation Right LE Impaired Sensation Description Paresthesia M6 PT-IP Treatment Start: 05/02/22 10:30 Freq: NEEDED Status: Active Protocol: Document 05/02/22 12:04 [place] (Rec: 05/02/22 12:57 KS [id number]) Physical Therapy Treatment Exercises Exercises Ankle Pumps,Gluteal Sets,Quad Sets,Heel Slides Education Education Provided Safety Other Treatments Other Treatment Performed Discussed OPPT, stair safety and home safety. M7 PT-IP Assessment and Plan Start: 05/02/22 10:30 Freq: NEEDED Status: Active Protocol: Document 05/02/22 12:04 KS (Rec: 05/02/22 12:57 KS [id number]) PT Summary Assessment and Plan Potential Rehabilitation Potential Excellent Summary Impairments ROM,Strength,Gait Progress Towards Goals Progressing Toward Goals Assessment Summary Pt progressing well w/ mobility. Able to perform sit< >stand and ambulation w/ FWW SBA. Ambulated ~70 ft w/ FWW w / increased BUE WB and cues for knee extension/quad facilitation. Pt able to perform LE exercises to promote blood flow and strengthening. Has not scheduled OPPT, but is open to it. Pt will be safe to d/c w/ assisting and will benefit from OPPT to improve strength, stability, and ROM. Goals Bed Mobility Goal Independent Transfer Goal Independent Gait Goal Independent Gait Distance 150 Other Goals independent with HEP, right knee AROM 10-90 Days to Meet Goals 2 Frequency of Treatment Frequency Of Treatment Twice a Day Treatment Plan Physical Therapy Treatment Plan Bed Mobility Training,Transfer Training,Gait Training, Therapeutic Exercise,Post Op Education,Discharge Planning, Hot or Cold Pack Weight Bearing Status Weight Bearing Status Weight Bear as Tolerated Recommendations To Nursing Amount of Assist Needed 1 Person Assist Discharge Recommendations PT Discharge Recommendations Home,Home with Assistance, Outpatient PT Transportation Needs at Discharge Private Vehicle
--- NOTE | 2022-05-02 14:12 | DI.RAD.S_ITS ---
PROCEDURE: XR CHEST 1V INDICATIONS: picc placement TECHNIQUE: One view of the chest was acquired. COMPARISON: None. FINDINGS: Surgical changes and devices: Right-sided PICC is seen with catheter tip projecting over the superior vena cava. Lungs and pleura: Lungs are clear. No pleural effusions or pneumothorax. Mediastinum: Mediastinal contours appear normal. Heart size is normal. Bones and chest wall: No suspicious bony lesions. Overlying soft tissues appear unremarkable. IMPRESSION: Right-sided PICC with catheter tip projecting over the superior vena cava. Dictated by: Francisco York M.D. on 05/02/2022 at 13:40 Approved by: Francisco York M.D. on 05/02/2022 at 13:40
[2022-05-02] MEDS: VANCOMYCIN 2,000 MG/400 ML PIGGYBACK 200 MG IV (14:42)
--- NOTE | 2022-05-02 14:58 | P.PN_ITS ---
Subjective Subjective Date Patient Seen: 05/02/22 Time Patient Seen: 14:58 Interval history: Pt sitting up in bed comfortably, watching college football. Requiring very little narcotic pain medication, has worked with PT today with good results. PICC line placed. Exam Vital Signs (past 8 hours): - 05/02/22 08:00 05/02/22 08:55 05/02/22 12:02 Temperature 96.6 F L 96.8 F L Pulse Rate 65 76 Respiratory Rate 18 18 Blood Pressure 124/79 124/79 139/65 Pulse Oximetry 96 95 Oxygen Flow Rate 0 0 Oxygen Delivery Method Room Air Oxygen Flow Rate 0 Narrative Exam Narrative: Hemovac with scant bloody drainage, no sign of purulence. Fluid cultures from OR preliminarily show GPC; identification and sensitivites pending, anaerobic cultures pending, PCR pending. The knee was aspirated in the ED prior to surgery, but this specimen does not appear to have been sent for culture. HAYLIE dressing functioning, minimal bloody drainage at distal end. Objective Labs Result Diagrams: 05/02/22 07:04 05/02/22 07:04 Labs: Laboratory Results - last 24 hr 05/02/22 05/02/22 07:04 07:04 Hgb 13.0 L Hct 38.3 L Sodium 134 L Potassium 3.8 Chloride 99 Carbon Dioxide 24 BUN 16 Creatinine 1.20 Estimated GFR > 60 BUN/Creatinine Ratio 13.3 Glucose 170 H Calcium 8.4 PFSH Medical History HLD (hyperlipidemia) HTN (hypertension) KD on CPAP Osteoarthritis PONV (postoperative nausea and vomiting) Umbilical hernia Surgical History Hx of arthroscopy of right knee (~2001) Hx of knee surgery Hx of tonsillectomy [place] teeth removed Social History household members: spouse Smoking Status: Former smoker alcohol intake: current Assessment & Plan Post-op Assessment and plan (1) Infection of total knee replacement: Assessment and Plan narrative: Continue IV vancomycin and ceftriaxone until C&S returned, at which point pt can be switched to more tailored antibiotic treatment x 6 weeks as an outpatient. Continue PT, multimodal pain control, ASA 81 mg BID for VTE prophylaxis. Postoperative Procedures: Procedures Operation Date: 05/01/22 16:30 Actual Procedure Side Surgeon p I&D Total knee, poly exchange Right Sheri Torres MD Postoperative day: 1 Quality VTE Deep Vein Thrombosis/Pulmonary Embolism Present on Admission: No
--- NOTE | 2022-05-02 16:30 | PC.NURSE ---
Pt denies discomfort at this time. QI PICC placed by outside Co. w/o incidence. Receiving ABO HAYLIE dsg/ fabiola wrap CDI. Satisfactory post op course. COntinue w/plan of care.
[2022-05-02] MEDS: cefTRIAXone 2,000 MG in SODIUM CHLORIDE 0.9% 100 ML 200 MG IV (17:20)
[2022-05-02] MEDS: AMLODIPINE 5 MG TABLET PO (17:24)
[2022-05-02 22:20] LABS: Add Manual Diff / Slide Review YES; Hematocrit 39.7 % (41-53); Hemoglobin 13.6 g/dL (13.5-17.5); Mean Corpuscular HGB Conc 34.4 % (30-36); Mean Corpuscular Hemoglobin 30.3 PG (26-34); Mean Corpuscular Volume 88.1 fL (80-100); Platelet Count 206 X10^3/uL (150-400); Red Cell Distribution Width 14.2 % (11.6-14.8); White Blood Cell Count 23.5 X10^3/uL (4.5-11.0)
[2022-05-03 00:56] LABS: Neutrophils Absolute Manual 21150 /uL (3000-5900); Total Cells Counted 100
[2022-05-03 00:57] LABS: Toxic Granulation Present
[2022-05-03] MEDS: ACETAMINOPHEN 325 MG TABLET 650 MG PO ×2 (05:31→11:28)
[2022-05-03] MEDS: IBUPROFEN 400 MG TABLET PO ×5 (05:32→20:06)
[2022-05-03 05:35] VITALS: BP 106/79; PULSE 62; RESP 16; TEMP 36.1; O2SAT 96
[2022-05-03 07:42] LABS: Hematocrit 38.7 % (41-53); Hemoglobin 12.8 g/dL (13.5-17.5); Mean Corpuscular Hemoglobin 29.5 PG (26-34); Mean Corpuscular Volume 89.4 fL (80-100); Platelet Count 210 X10^3/uL (150-400); Red Blood Cell Count 4.33 X10^6/uL (4.5-5.9); Red Cell Distribution Width 14.1 % (11.6-14.8)
[2022-05-03 07:54] LABS: BUN Creatinine Ratio 23.6 (6-22); Blood Urea Nitrogen 26 mg/dL (9-20); Calcium 8.4 mg/dL (8.4-10.2); Carbon Dioxide 24 mmol/L (22-32); Chloride 103 mmol/L (98-107); Estimated Glomerular Filt Rate > 60 mL/min (>60); Glucose 120 mg/dL (70-100); HEMOLYSIS < 15 (0-50); Potassium 3.4 mmol/L (3.4-5.1); Sodium 138 mmol/L (137-145)
[2022-05-03 07:58] VITALS: BP 131/79; PULSE 58; RESP 17; TEMP 35.7; O2SAT 95
[2022-05-03 08:18] VITALS: BP 131/79
[2022-05-03] MEDS: DOCUSATE 100 MG CAPSULE PO ×2 (08:18→20:06)
[2022-05-03] MEDS: LOSARTAN 50 MG TABLET 100 MG PO (08:18)
[2022-05-03] MEDS: ASPIRIN EC 81 MG TABLET PO ×2 (08:18→20:06)
[2022-05-03] MEDS: SODIUM CHLORIDE 0.9% FLUSH 10 ML IV ×2 (08:18→20:06)
[2022-05-03] MEDS: ATORVASTATIN 20 MG TABLET 40 MG PO (08:19)
[2022-05-03] MEDS: POTASSIUM CHLORIDE 20 MEQ TAB 40 MEQ PO (09:22)
--- NOTE | 2022-05-03 09:46 | PT.IPTN ---
Current Diagnoses Morbid (severe) obesity due to excess calories (05/01/22) Obstructive sleep apnea (adult) (pediatric) (05/01/22) Pyogenic arthritis, unspecified (05/01/22) Infection and inflammatory reaction due to other internal joint prosthesis, initial encounter (05/01/22) Presence of unspecified artificial knee joint (05/01/22) Dependence on other enabling machines and devices (05/01/22) Surgery Performed Operation Date: 05/01/22 16:30 Actual Procedures p I&D Total knee, poly exchange(Right) - Sheri Trores MD Physical Therapy Treatment Note M2 PT-IP Current Condition Start: 05/02/22 10:30 Freq: NEEDED Status: Active Protocol: Document 05/02/22 10:30 SAK (Rec: 05/02/22 10:43 SAK [id number]) Physical Therapy Current Condition Current Condition Evaluation Date 05/02/22 Treatment Diagnosis right TKA revision due to sepsis M3 PT-IP Subjective Start: 05/02/22 10:30 Freq: NEEDED Status: Active Protocol: Document 05/03/22 09:46 AW (Rec: 05/03/22 11:38 AW [id number]) Subjective Physical Therapy Visit Type Type Treatment Note Visit Start Time 09:33 Visit Stop Time 09:46 Total Visit Minutes 13 Notes 0 Physical Therapy Visit Comments Patient Comments Pt is feeling good and hoping to ambulate further today. 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 M4 PT-IP Mobility and Gait Start: 05/02/22 10:30 Freq: NEEDED Status: Active Protocol: Document 05/03/22 09:46 AW (Rec: 05/03/22 11:38 AW [id number]) PT-Bed Mobility Assessment Supine to Sit Supine to Sit Contact Guard Assistance PT-Transfer Assessment Sit to and From Stand Sit to and from Stand Standby Assistance Equipment Transfer Assistive Device Front Wheeled Walker Orthotic/Prosthetic Devices or Brace: No Transfers Transfer Destination Chair Transfer Technique Pt ambulated Transfer Ability Level of Assist Standby Assistance Comments Mobility Comments Pt was sitting up in bed as PT arrived. He needed CGA to guide the operative leg out of bed but was otherwise SBA. He stood and ambulated with FWW to the toilet, standing to void. He then walked x 400 feet with FWW SBA. On return to the room, he transferred to the chair and agreed to elevate LEs to manage edema and pain. Gait Assessment Gait Gait Assistance Required: Standby Assistance Distance (Feet) 400 Able to Maintain Weight Bearing Status Yes During Gait Assistive Devices Assistive Device Front Wheeled Walker Orthotic/Prosthetic Devices or Brace: No Gait Deviations General Gait Pattern Antalgic,Decreased Stride Length,Decreased Feet Clearance,Flexed Trunk,Step-to Gait Factors Limiting Gait Function Factors Limiting Gait Function Decreased Strength,Limited Range of Motion,Pain Comments Gait Comments Pt benefits from cues for quad activation during RLE stance. With increased distance, pt tends to lean forward on walker and needs cues to maintain upright posture. Stair Climbing Assessment Comments Stair Climbing Comments No stairs at home, pt familiar w/ correct sequencing and feels confident to complete whenever he will need to. PT-Balance Assessment Sitting Balance and Reactions Static Sitting Balance Ability Normal Dynamic Sitting Balance Ability Normal Standing Balance and Reactions Static Standing Balance Ability Good Dynamic Standing Balance Ability Good Device Used FWW M5 PT-IP Objective Assessments Start: 05/02/22 10:30 Freq: NEEDED Status: Active Protocol: Document 05/02/22 10:30 SAK (Rec: 05/02/22 10:43 SAK [id number]) Orientation Orientation/Cognition Level of Alertness Alert Orientation Name,Place,Situation Language Function Ability No Deficits Noted Safety Awareness Understands Safety Issues Gross Range of Motion Upper Extremity ROM Assessment Within Functional Limits Lower Extremity ROM Impairments left WFL right knee extension: PROM 5- 50 AROM 30-45 Strength Comments Strength Comments left LE WFL right knee extensor lag Sensation Assessment Sensation Gross Sensation Right LE Impaired Sensation Description Paresthesia M6 PT-IP Treatment Start: 05/02/22 10:30 Freq: NEEDED Status: Active Protocol: Document 05/03/22 09:46 AW (Rec: 05/03/22 11:38 AW [id number]) Physical Therapy Treatment Education Education Provided Safety Other Treatments Other Treatment Performed Pt has called his OPPT and will be scheduling HERBIE. M7 PT-IP Assessment and Plan Start: 05/02/22 10:30 Freq: NEEDED Status: Active Protocol: Document 05/03/22 09:46 AW (Rec: 05/03/22 11:38 AW [id number]) PT Summary Assessment and Plan Potential Rehabilitation Potential Excellent Summary Impairments ROM,Strength,Gait Progress Towards Goals Progressing Toward Goals Assessment Summary Pt progressing well w/ mobility. Able to perform sit< >stand and ambulation w/ FWW SBA. Ambulated ~70 ft w/ FWW w / increased BUE WB and cues for knee extension/quad facilitation. Pt able to perform LE exercises to promote blood flow and strengthening. Has not scheduled OPPT, but is open to it. Pt will be safe to d/c w/ assisting and will benefit from OPPT to improve strength, stability, and ROM. Goals Bed Mobility Goal Independent Transfer Goal Independent Gait Goal Independent Gait Distance 150 Other Goals independent with HEP, right knee AROM 10-90 Days to Meet Goals 2 Frequency of Treatment Frequency Of Treatment Twice a Day Treatment Plan Physical Therapy Treatment Plan Bed Mobility Training,Transfer Training,Gait Training, Therapeutic Exercise,Post Op Education,Discharge Planning, Hot or Cold Pack Other Recommendations and Next Treatment measure AROM, review ROM Focus exercises Weight Bearing Status Weight Bearing Status Weight Bear as Tolerated Recommendations To Nursing Amount of Assist Needed Standby Assistance Discharge Recommendations PT Discharge Recommendations Home,Home with Assistance, Outpatient PT Transportation Needs at Discharge Private Vehicle
--- NOTE | 2022-05-03 10:40 | PM.PNPO.1 ---
Subjective Subjective Date Patient Seen: 05/03/22 Time Patient Seen: 10:46 Interval history: Sitting up in chair, watching football. No narcotic pain medication since yesterday morning, adequate pain control w/ IBPN and APAP. No problems eating or voiding, ambulating without difficulty. Exam Vital Signs (past 8 hours): - 05/03/22 05:35 05/03/22 07:58 05/03/22 08:18 Temperature 96.9 F L 96.3 F L Pulse Rate 62 58 L Respiratory Rate 16 17 Blood Pressure 106/79 131/79 131/79 Pulse Oximetry 96 95 Oxygen Flow Rate 0 0 Oxygen Delivery Method Room Air Oxygen Flow Rate 0 Narrative Exam Narrative: Intraoperative cultures still pending. WBC down from yesterday, H/H up; will continue to check daily. 5/5 hip flexors, quadriceps, hamstrings, DF, PF, EHL. Sensation intact throughout RLE. Calves soft, compressible, nontender and without palpable cords or masses. HAYLIE functioning, intact, minimal bloody drainage at distal end. Hemovac w/ clear, serosanguinous drainage. Objective Labs Result Diagrams: 05/03/22 06:50 05/03/22 06:50 Labs: Laboratory Results - last 24 hr 05/02/22 05/03/22 05/03/22 21:57 06:50 06:50 WBC 23.5 H 20.0 H RBC 4.50 4.33 L Hgb 13.6 12.8 L Hct 39.7 L 38.7 L MCV 88.1 89.4 MCH 30.3 29.5 MCHC 34.4 33.0 RDW 14.2 14.1 Plt Count 206 210 Neut % (Auto) Not Reportable Lymph % (Auto) Not Reportable [place] % (Auto) Not Reportable Eos % (Auto) Not Reportable Baso % (Auto) Not Reportable Lymph # (Auto) Not Reportable [place] # (Auto) Not Reportable Baso # (Auto) Not Reportable Total Counted 100 Seg Neutrophils % 69.0 Band Neutrophils % 21.0 H Lymphocytes % (Manual) 4.0 L Monocytes % (Manual) 5.0 Eosinophils % (Manual) 1.0 L Neutrophils # (Manual) 60363 H Toxic Granulation Present H RBC Morphology See below Sodium 138 Potassium 3.4 Chloride 103 Carbon Dioxide 24 BUN 26 H Creatinine 1.10 Estimated GFR > 60 BUN/Creatinine Ratio 23.6 H Glucose 120 H Calcium 8.4 PFSH Medical History (Updated 05/03/22 @ 10:42 by Sudha Block PA-C) HLD (hyperlipidemia) HTN (hypertension) Morbid obesity KD on CPAP Osteoarthritis PONV (postoperative nausea and vomiting) Umbilical hernia Surgical History Hx of arthroscopy of right knee (~2001) Hx of knee surgery Hx of tonsillectomy [place] teeth removed Social History household members: spouse Smoking Status: Former smoker alcohol intake: current Assessment & Plan Post-op Assessment and plan (1) Infection of total knee replacement: Assessment and Plan narrative: Continue IV vancomycin and ceftriaxone until cultures finalized, then will discharge on IV antibiotics x 6 weeks w/ tailored coverage. ASA 81 mg BID for VTE prophylaxis x 6 weeks. Continue PT while in hospital; no need for outpt PT at this time. F/u in ortho clinic w/ PA between May 12 and May 15 for staple removal and wound check. Follow up w/ Dr Carrasco between May 26 and May 29. (2) KD on CPAP: (3) Morbid obesity: Postoperative Procedures: Procedures Operation Date: 05/01/22 16:30 Actual Procedure Side Surgeon p I&D Total knee, poly exchange Right Sheri Torres MD Quality VTE Deep Vein Thrombosis/Pulmonary Embolism Present on Admission: No
[2022-05-03 11:00] VITALS: BP 120/68; PULSE 63; RESP 18; TEMP 35.8; O2SAT 97
[2022-05-03] MEDS: VANCOMYCIN 2,000 MG/400 ML PIGGYBACK 200 MG IV (12:49)
--- NOTE | 2022-05-03 13:19 | CM.DPC ---
Addendum entered by KEDAR Hernandez 05/03/22 15:38: ADD: Per Dr. Torres, plan is to d/c tomorrow Mon on Ceftriaxone Q24 and pt still wants home infusion so that he can also continue to work. YAMILET faxed update to [facility] on IV-Abx and requested check of pt's insurance coverage for plan of d/c tomorrow. BF Original Note: DCP Cont: Per MD and Pharmacist, final cultures still pending to determine which IV-Abx needed at d/c. [facility] is following for IV-Abx at d/c and will need to run pt's insurance tomorrow Mon when billing dept available to determine coverage and any out of pocket expense. Pt working with PT and per PT pt continues to improve and recommending home with spouse assist and outpt PT. [facility] referral made in anticipation of at least RN for assist with med management and PICC management after discharge for home infusion. PICC placed yesterday and PICC insertion note obtained from chart and copy made to provide to [facility] tomorrow once abx narrowed. Plan: SW to follow closely for culture results and [facility] review of coverage towards finalizing likely plan of home with [facility] and [facility] when medically stable. KEDAR Hernandez
[2022-05-03 15:00] VITALS: BP 143/73; PULSE 67; RESP 17; TEMP 36.3; O2SAT 97
[2022-05-03] MEDS: cefTRIAXone 2,000 MG in SODIUM CHLORIDE 0.9% 100 ML 200 MG IV (15:06)
[2022-05-03] MEDS: AMLODIPINE 5 MG TABLET PO (16:21)
[2022-05-03 19:38] VITALS: BP 143/80; PULSE 63; RESP 16; TEMP 35.9; O2SAT 97
--- NOTE | 2022-05-03 19:39 | PC.NURSE ---
Patient is alert and oriented. Breath sounds CTA with RA sat of 97%; using home CPAP for sleep. HRR. BP 143/80 which patient states is normal for him; receives both Amlodipine and Losartan. Denies nausea. BT present and reports having had BM earlier today. Denies dysuria, frequency or urgency with urination. Is able to move himself in bed and is up to bathroom/walk in vides with walker and SBA or independent. HAYLIE dressing to right knee wrapped with fabiola wrap is CDI and functioning. CMS is intact. Wearing bilateral calf SCD's. Denies pain. Fall risk score is moderate but patient calls for assistance appropriately and is steady on feet so alarm is not in use at this time.
[2022-05-04] MEDS: ACETAMINOPHEN 325 MG TABLET 650 MG PO ×3 (00:22→14:27)
[2022-05-04] MEDS: IBUPROFEN 400 MG TABLET PO ×4 (00:22→14:27)
[2022-05-04] MEDS: SODIUM CHLORIDE 0.9% FLUSH 10 ML IV ×2 (05:44→08:39)
[2022-05-04 06:30] LABS: Hematocrit 37.1 % (41-53); Hemoglobin 12.6 g/dL (13.5-17.5); Mean Corpuscular HGB Conc 33.8 % (30-36); Mean Corpuscular Volume 88.8 fL (80-100); Platelet Count 229 X10^3/uL (150-400); Red Blood Cell Count 4.18 X10^6/uL (4.5-5.9); Red Cell Distribution Width 14.5 % (11.6-14.8); White Blood Cell Count 12.8 X10^3/uL (4.5-11.0)
[2022-05-04 06:41] LABS: BUN Creatinine Ratio 21.6 (6-22); Blood Urea Nitrogen 22 mg/dL (9-20); Calcium 8.2 mg/dL (8.4-10.2); Carbon Dioxide 27 mmol/L (22-32); Chloride 104 mmol/L (98-107); Estimated Glomerular Filt Rate > 60 mL/min (>60); Glucose 91 mg/dL (70-100); Sodium 138 mmol/L (137-145)
[2022-05-04 06:42] LABS: HEMOLYSIS 72 (0-50)
[2022-05-04 06:43] LABS: Potassium 4.2 mmol/L (3.4-5.1)
[2022-05-04 08:00] VITALS: BP 147/86; PULSE 67; RESP 18; TEMP 35.8; O2SAT 96
[2022-05-04 08:29] VITALS: BP 147/86
[2022-05-04] MEDS: ATORVASTATIN 20 MG TABLET 40 MG PO (08:29)
[2022-05-04] MEDS: ASPIRIN EC 81 MG TABLET PO (08:29)
[2022-05-04] MEDS: DOCUSATE 100 MG CAPSULE PO (08:29)
[2022-05-04] MEDS: LOSARTAN 50 MG TABLET 100 MG PO (08:29)
--- NOTE | 2022-05-04 10:33 | PT.IPTN ---
Addendum entered and electronically signed by Rona Fowler PTA 05/04/22 11:59: Noted R ankle swelling, elevated in chair when arrived, pt reports improved from yesterday. Friend in room visiting when arrived, he left when started tx. Original Note: Current Diagnoses Morbid (severe) obesity due to excess calories (05/01/22) Obstructive sleep apnea (adult) (pediatric) (05/01/22) Pyogenic arthritis, unspecified (05/01/22) Infection and inflammatory reaction due to other internal joint prosthesis, initial encounter (05/01/22) Presence of unspecified artificial knee joint (05/01/22) Dependence on other enabling machines and devices (05/01/22) Surgery Performed Operation Date: 05/01/22 16:30 Actual Procedures p I&D Total knee, poly exchange(Right) - Sheri Torres MD Physical Therapy Treatment Note M2 PT-IP Current Condition Start: 05/02/22 10:30 Freq: NEEDED Status: Active Protocol: Document 05/04/22 10:17 SP (Rec: 05/04/22 11:52 SP [id number]) Physical Therapy Current Condition Current Condition Evaluation Date 05/02/22 Treatment Diagnosis right TKA revision due to sepsis M3 PT-IP Subjective Start: 05/02/22 10:30 Freq: NEEDED Status: Active Protocol: Document 05/04/22 10:17 SP (Rec: 05/04/22 11:52 SP [id number]) Subjective Physical Therapy Visit Type Type Treatment Note Visit Start Time 10:17 Visit Stop Time 10:33 Total Visit Minutes 16 Notes Pain 2/10 with mobility. Number of ANSWERING SERVICE AGENT Visits 1 Physical Therapy Visit Comments Patient Comments Pt reported doing well, has outpt therapy set up for next week T/THs, stated just waiting to hear when leaving today so can call to come pick him up. Patient Goals discharge home with assist of . Therapy Pain Assessment Pain When Pain Assessed During Mobility Pain Present Pain Present Pain Reported Location right knee Intensity 4 Scale Used Numeric (0 - 10) Description With Movement Pain Management Techniques Distraction,Timing of Activity with Medications M4 PT-IP Mobility and Gait Start: 05/02/22 10:30 Freq: NEEDED Status: Active Protocol: Document 05/04/22 10:17 SP (Rec: 05/04/22 11:52 SP [id number]) PT-Bed Mobility Assessment Sit to Supine Sit to Supine Independent Scooting Scooting Up and Down in Bed Independent PT-Transfer Assessment Sit to and From Stand Sit to and from Stand Standby Assistance,Use of Upper Extremities Equipment Transfer Assistive Device Gait Belt,Front Wheeled Walker Orthotic/Prosthetic Devices or Brace: No Transfers Transfer Destination Bed Transfer Technique pt ambulated with FWW Transfer Ability Level of Assist Standby Assistance Comments Mobility Comments Pt was sitting up in chair with leg rest elevated as ANSWERING SERVICE AGENT arrived. Assisted leg rest lowering 15%A. Sit>stand SBA, ambulated further distance in hallway around nursing station and back to bed approx 240 ft w/ FWW SBA. Complete stand> sit>supine I with UE LUE hooked under RLE and UE support needed to complete into bed. Reviewed APs x10, heel slide x5 reps 2-77 deg R knee flexion AROM, R knee extension hang. Pt requested to stay in bed, had call light and all needs in reach before left. Gait Assessment Gait Gait Assistance Required: Standby Assistance Distance (Feet) 240 Able to Maintain Weight Bearing Status Yes During Gait Assistive Devices Assistive Device Gait Belt,Front Wheeled Walker Orthotic/Prosthetic Devices or Brace: No Gait Deviations General Gait Pattern Antalgic,Decreased Stride Length,Decreased Feet Clearance,Flexed Trunk,Step-to Gait Factors Limiting Gait Function Factors Limiting Gait Function Decreased Strength,Limited Range of Motion,Pain Comments Gait Comments Cued upright posture, //feet ( decrease RLE hip ER) and R knee flexion during swing phase, decrease WB UEs needed (approx Mod demonstrated during midstance RLE) on FWW to allow LE strengthening. Improved corrections for normalizing gait post cues. Stair Climbing Assessment Comments Stair Climbing Comments No stairs at home, pt familiar w/ correct sequencing and feels confident to complete whenever he will need to. PT-Balance Assessment Sitting Balance and Reactions Static Sitting Balance Ability Normal Dynamic Sitting Balance Ability Normal Standing Balance and Reactions Static Standing Balance Ability Good Dynamic Standing Balance Ability Good Device Used FWW M5 PT-IP Objective Assessments Start: 05/02/22 10:30 Freq: NEEDED Status: Active Protocol: Document 05/02/22 10:30 VICKY (Rec: 05/02/22 10:43 [facility] [id number]) Orientation Orientation/Cognition Level of Alertness Alert Orientation Name,Place,Situation Language Function Ability No Deficits Noted Safety Awareness Understands Safety Issues Gross Range of Motion Upper Extremity ROM Assessment Within Functional Limits Lower Extremity ROM Impairments left WFL right knee extension: PROM 5- 50 AROM 30-45 Strength Comments Strength Comments left LE WFL right knee extensor lag Sensation Assessment Sensation Gross Sensation Right LE Impaired Sensation Description Paresthesia M6 PT-IP Treatment Start: 05/02/22 10:30 Freq: NEEDED Status: Active Protocol: Document 05/04/22 10:17 SP (Rec: 05/04/22 11:52 SP [id number]) Physical Therapy Treatment Exercises Exercises Ankle Pumps,Gluteal Sets,Quad Sets,Heel Slides,Passive Knee Extension Hang Knee ROM Measurement 2-77 deg RLE AROM supine Other Treatments Other Treatment Performed Discussed with pt and already set up with outpt therapy next week, importance of mobilility and HEP until then for circulation, ROM and strength. M7 PT-IP Assessment and Plan Start: 05/02/22 10:30 Freq: NEEDED Status: Active Protocol: Document 05/04/22 10:17 SP (Rec: 05/04/22 11:52 SP [id number]) PT Summary Assessment and Plan Potential Rehabilitation Potential Excellent Summary Impairments ROM,Strength,Gait Progress Towards Goals Progressing Toward Goals Assessment Summary Pt progressing well w/ mobility. Able to perform sit< >stand and ambulation w/ FWW SBA. He completed gait around nursing station approx 240 ft at one time w/ FWW SBA. He is set up with OPPT for nex week. Pt will be safe to d/c w/ assisting and will benefit from OPPT to improve strength, stability, and ROM. Goals Bed Mobility Goal Independent Transfer Goal Independent Gait Goal Independent Gait Distance 150 Other Goals independent with HEP, right knee AROM 10-90 Days to Meet Goals 2 Frequency of Treatment Frequency Of Treatment Twice a Day Treatment Plan Physical Therapy Treatment Plan Bed Mobility Training,Transfer Training,Gait Training, Therapeutic Exercise,Post Op Education,Discharge Planning, Hot or Cold Pack Other Recommendations and Next Treatment AROM, review HEP, quality gait Focus , balance activities wt shifting to improve RLE WB acceptance. Weight Bearing Status Weight Bearing Status Weight Bear as Tolerated Recommendations To Nursing Amount of Assist Needed Standby Assistance Discharge Recommendations PT Discharge Recommendations Home,Home with Assistance, Outpatient PT Transportation Needs at Discharge Private Vehicle
--- NOTE | 2022-05-04 11:49 | CM.DPC ---
Addendum entered by KEDAR Hernandez 05/04/22 15:36: ADD: Almost end of SW shift and spoke to RN who had spoken to Dr. Torres via phone and confirmed plan is still d/c home today and aware of need for d/c summary with orders/note stating [facility] to manage at d/c but may not be bedside until after afternoon IV-Abx dose infusing or completed. YAMILET called [facility] to update and they will try to pull d/c summary from [employer] but may need SW tomorrow morning to fax. SW faxed PICC insertion note. BF Original Note: DCP Discharge with Home Infusion SW called [facility] and confirmed with Mao that they have the likely final abx Ceftriaxone Q24 and will run pt's insurance for coverage. SW received call back from [facility] and pt has a high deductible of $6000 which is about $530 a week and then once pt meets deductible will have 100% coverage. HH RN would not necessarily be helpful in this situation as pt needs to meet deductible first. Mao called pt and updated on this information and pt confirms he is still agreeable with home infusion and paying the deductible and comfortable with [facility] meeting him in the home tomorrow for teaching and his next dose. YAMILET updated RN who will help determine if pt's 1600 dose could be bumped earlier so pt can d/c home as pt wanting to d/c home earlier that 1700 tonight. YAMILET met bedside with pt and explained role and he confirms he is agreeable with the cost for home infusion and denies any need for HH RN or PT as he states he plans to attempt to be back to work by Wed if possible and has plans to go back to outpt PT right next to [facility] after discharge as he was established there post initial knee surgery. Pt confirms that once he can get his IV-Abx dose today he will call spouse who is standing by to provide transport home. Plan: SW to follow for faxing [facility] d/c summary and PICC insertion note with plan of pt d/c home today via spouse POV after IV-Abx dose infuses. KEDAR Hernandez
--- NOTE | 2022-05-04 14:46 | PT-IP ANOTE ---
Pt feeling too fatigued for PT this PM. States he is feeling good with his mobility. Will reassess tomorrow as pt may be appropriate for just once daily tx.
[2022-05-04] MEDS: cefTRIAXone 2,000 MG in SODIUM CHLORIDE 0.9% 100 ML 200 MG IV (15:34)
--- NOTE | 2022-05-04 18:18 | PC.NURSE ---
Event Note Patient A&O, VSS, RA, no complaints of pain/discomfort. Patient frustrated due to late discharge, MD aware of patient discharge plan. Patient stated he will leave regardless if discharge orders are input by MD. Patient stated MD can call patient and review any discharge instructions. This RN called electronic assembler MD Torres, and stated patient preparing to leave soon with or without discharge orders. MD Torres stated to tell patient she would come to discharge at 1845. Patient updated and declined. This RN informed patient that leaving hospital without discharge orders is considered AMA. Patient agreeable and okay leaving AMA. Paperwork printed and signed by patient. PICC line saline flushed and heparin locked prior to discharge, patient received daily dose of IV antibiotics today and scheduled for IV infusion therapy at home tomorrow. Will update MD upon arrival.
--- NOTE | 2022-05-04 19:47 | P.PN_ITS ---
Subjective Subjective Interval history: He notes he has minimal pain he got bored and really wanted to get a home. We have arranged for outpatient antibiotics ceftriaxone 2 g IV. Exam Vital Signs (past 8 hours): Oxygen Delivery Method Room Air Oxygen Flow Rate 0 Narrative Exam Narrative: He is alert he is oriented he is comfortable dressings dry his calfs are soft b ilaterally Objective Labs Result Diagrams: 05/04/22 05:53 05/04/22 05:53 Labs: Laboratory Results - last 24 hr 05/04/22 05/04/22 05:53 05:53 WBC 12.8 H RBC 4.18 L Hgb 12.6 L Hct 37.1 L MCV 88.8 MCH 30.0 MCHC 33.8 RDW 14.5 Plt Count 229 Sodium 138 Potassium 4.2 Chloride 104 Carbon Dioxide 27 BUN 22 H Creatinine 1.02 Estimated GFR > 60 BUN/Creatinine Ratio 21.6 Glucose 91 Calcium 8.2 L PFSH Medical History (Updated 05/03/22 @ 10:42 by Sudha Block PA-C) HLD (hyperlipidemia) HTN (hypertension) Morbid obesity KD on CPAP Osteoarthritis PONV (postoperative nausea and vomiting) Umbilical hernia Surgical History Hx of arthroscopy of right knee (~2001) Hx of knee surgery Hx of tonsillectomy [place] teeth removed Social History household members: spouse Smoking Status: Former smoker alcohol intake: current Assessment & Plan Post-op Postoperative Procedures: Procedures Operation Date: 05/01/22 16:30 Actual Procedure Side Surgeon p I&D Total knee, poly exchange Right Sheri Torres MD Postoperative day: 3 Postoperative status: doing well Postoperative status narrative: Patient got anxious and wanted to go home prior to me being available. I was in the emergency room see another patient he was noted to be stable and his outpatient IV therapy had been arranged. I did talk contact Dr. Madden from Infectious disease at [facility] and ask her to assist in following his IV antibiotics. She notes that he may ultimately require a two- stage exchange arthroplasty. Clinically he has responded quickly to a polyethylene exchange and irrigation and debridement. He had very short duration of symptoms prior to his polyethylene exchange. Postoperative plan narrative: Continue IV antibiotics 2 g ceftriaxone IV q.day likely for 6 weeks. Follow-up at [facility] in 10-14 days. Schedule follow-up with Infectious Disease at [facility]. Quality VTE Deep Vein Thrombosis/Pulmonary Embolism Present on Admission: No
--- NOTE | 2022-05-04 19:58 | P.DS_ITS ---
History of Present Illness History of Present Illness Chief complaint: fever, unable to put weight on rt knee Narrative: This is a 61-year-old gentleman who has a history of a right total knee arthroplasty by Dr. Carrasco from about a year ago. He notes his knee was functioning extremely well until about 24 hours ago when he noted increased fevers and chills and subsequently developed a right knee in effusion. He notes incapacitating right knee pain. He came to the emergency room for evaluation. And notes severe pain with attempted range of motion. Discharge Providers Provider Date of admission: 05/01/22 11:24 Discharge Date: 05/04/22 Primary care physician: Doctor Sheila MD Consults: 05/01/22 17:25 Consult to Respiratory Therapy Evaluate & Treat Comment: Physician Instructions: Evaluate and treat 05/01/22 21:33 Consult to Discharge Planning Routine Comment: Consult to Physical Therapy Evaluate & Treat Comment: Physician Instructions: postop TKA protocol Consult to Respiratory Therapy Evaluate & Treat Comment: Physician Instructions: Evaluate and treat 05/01/22 21:33 Consult to Respiratory Therapy Evaluate & Treat Comment: 61y M post I&D periprosth infx, BMI 41, KD+CPAP Physician Instructions: Evaluate and treat 05/02/22 10:49 Consult After Hours PICC Line RN Urgent Comment: Discharge provider: Sheri Torres MD Summary Hospital Course Discharge Diagnosis: Periprosthetic knee infection Hospital Course: Patient was seen on an emergent basis and taken to the operating room were and her when an irrigation and debridement with the polyethylene exchange and extensive synovectomy and debridement of his right total knee arthroplasty. His cultures grew a strep species which was bender sensitive. He responded to IV a ntibiotics. He was placed initially on ceftriaxone and vancomycin and subsequently transitioned to ceftriaxone. He did well with physical therapy. Was ambulatory with minimal pain. His white count felt to 12.8 and he was felt to be stable for discharge. Infectious Disease was verbally consult id with a plan for outpatient follow-up. Status at Discharge Cognitive/behavioral status at discharge: oriented Functional status at discharge: uses cane/walker Overall status at discharge: patient is progressing back to baseline Exam Vital Signs (past 8 hours): Oxygen Delivery Method Room Air Oxygen Flow Rate 0 Narrative Exam Narrative: Dressing intact, calf soft, fair range of motion knee Objective Labs Result Diagrams: 05/04/22 05:53 05/04/22 05:53 Labs: Laboratory Results - last 24 hr 05/04/22 05/04/22 05:53 05:53 WBC 12.8 H RBC 4.18 L Hgb 12.6 L Hct 37.1 L MCV 88.8 MCH 30.0 MCHC 33.8 RDW 14.5 Plt Count 229 Sodium 138 Potassium 4.2 Chloride 104 Carbon Dioxide 27 BUN 22 H Creatinine 1.02 Estimated GFR > 60 BUN/Creatinine Ratio 21.6 Glucose 91 Calcium 8.2 L PFSH Medical History (Updated 05/03/22 @ 10:42 by Sudha Block PA-C) HLD (hyperlipidemia) HTN (hypertension) Morbid obesity KD on CPAP Osteoarthritis PONV (postoperative nausea and vomiting) Umbilical hernia Surgical History Hx of arthroscopy of right knee (~2001) Hx of knee surgery Hx of tonsillectomy [place] teeth removed Social History household members: spouse Smoking Status: Former smoker alcohol intake: current Discharge Assessment & Plan Assessment and Plan Assessment: Doing well tolerating antibiotics without difficulty. Plan of Treatment: Continue ceftriaxone 2 g IV Q 24 hours. Follow up at [facility] orth[facility] in 10 days and at [facility] Infectious Disease. Discharge Plan Discharge Plan Patient Disposition: Home Discharge orders & Medications Prescriptions: New polyethylene glycol 3350 17 gram Powder In Packet 17 g PO DAILY PRN (Reason: Constipation) Qty: 14 0RF aspirin 81 mg Tablet,Delayed Release (Dr/Ec) 81 mg PO BID Qty: 90 0RF ibuprofen 400 mg Tablet 400 mg PO Q4HR Qty: 60 0RF oxycodone 5 mg Tablet 5 mg PO Q3HR PRN (Reason: Pain, Moderate (4-6)) Qty: 30 0RF ceftriaxone 2 gram recon soln 2 g IV Q24H Qty: 10 4RF Continued atorvastatin 40 mg Tablet 40 mg PO DAILY amlodipine 5 mg Tablet 5 mg PO QPM losartan 100 mg Tablet 100 mg PO DAILY hydroxyzine pamoate 25 mg Capsule 25 mg PO Q6HR PRN (Reason: Nausea) Qty: 30 0RF Follow up/Referrals: Miscellaneous,DoctorMD [Primary Care Provider] - Rock Carrasco MD [Physician] - 2 Weeks (F/u in ortho clinic w/ PA between May 12 and May 15 for staple removal and wound check. Follow up w/ Dr Carrasco between May 26 and May 29.) Discharge Health Status Multidrug resistant organism: No MDRO Diet/Activity/Treatments Diet: Diet as Tolerated Activity: Walk frequently! Weight bearing as tolerated to right leg. Cold/Heat Therapy: Ice to knee as needed for pain. Skin/Wound/Dressing Care Report to your healthcare provider any signs of infection, such as:: chills, fever, night sweats, unusual drainage and unusual redness Dressing: May shower w/ HAYLIE dressing in place; ok if battery pack gets wet, but try to avoid direct spray. Batteries will in 5-7 days, at which point you can detach or cut off battery pack and dispose of it. Leave dressing in place until follow up appointment. Visit Report/Discharge Packet Instructions: DI for Knee Replacement, DI for Prescription Opioid Use Stand Alone Forms: Surgery Discharge Discharge Data Primary Care Provider: Miscellaneous,Doctor Quality VTE Deep Vein Thrombosis/Pulmonary Embolism Present on Admission: No
--- NOTE | 2022-05-05 10:22 | CM.DPNOTE ---
Faxed [facility]: 2 scripts that were left underneath our door when I came in 05/05/22. A note said, Please fax to the [facility]. Pt. left AMA 05/04. I also faxed dc summary and pic X-ray. Ivonne Mcclellan CM [employer].
[2022-05-12 12:39] LABS: Bacteria Det by PCR Univ WA DETECTED
== END 2022-05-04 18:15 | disposition home or self-care (01) | DRG 486 ==
LOC: ED 11:19 → AC 12:15
PROVIDERS: Physician Assistant; Admitting Provider Orthopaedic Surgery; Emergency Provider Emergency Medicine; Referring Provider Emergency Medicine; Visit Provider Orthopaedic Surgery
PROC: 0SBC0ZZ Excision of Right Knee Joint, Open Approach (ICD-10-PCS; principal; 2022-05-01 16:30)
DX: T84.53XA Infection and inflammatory reaction due to internal right knee prosthesis, initial encounter (principal); M00.861 Arthritis due to other bacteria, right knee; Z68.41 Body mass index [BMI] 40.0-44.9, adult; E66.01 Morbid (severe) obesity due to excess calories; G47.33 Obstructive sleep apnea (adult) (pediatric); E78.5 Hyperlipidemia, unspecified; I10 Essential (primary) hypertension; B95.4 Other streptococcus as the cause of diseases classified elsewhere; Z20.822 Contact with and (suspected) exposure to COVID-19; Z87.891 Personal history of nicotine dependence
CPT/HCPCS: 36415; 36592; 71045; 73562; 80048; 80053; 83605; 84145; 85007; 85014; 85018; 85025; 85027; 85651; 86140; 87040; 87070; 87075; 87077; 87176; 87186; 87205; 87635; 87801; 89051; 89060; 94660; 96365; 96375; 97116; 97161; 99284; C1776; C9803; C9290; J0171; J0690; J0696; J1100; J1170; J1642; J2250; J2405; J2704; J3010; J3490